=== PATIENT | male | born 1940 | race Caucasian/White ===

== ENCOUNTER → 2024-01-08 16:40 | Outpatient (REF) | payer BC, MEDICARE, SELFPAY ==
[2024-01-08 17:40] LABS: Blood Urea Nitrogen 35 mg/dl (9-20); Calcium 9.5 mg/dl (8.4-10.2); Carbon Dioxide 24 mmol/L (22-30); Chloride 101 mmol/L (98-107); Glucose 90 mg/dl (70-99); Potassium 5.3 mmol/L (3.5-5.1); Sodium 135 mmol/L (135-145); eGFR 39.02
== END ==
LOC: REG 16:40
PROVIDERS: ATTENDING PHYSICIAN Internal Medicine
DX: E87.5 Hyperkalemia (principal)
CPT/HCPCS: 36415; 80048

== ENCOUNTER 2024-03-22 09:14 | Emergency (ER) | payer BC, MEDICARE, SELFPAY ==
[2024-03-22 09:23] VITALS: BP 169/75
[2024-03-22 09:40] VITALS: BMI 28.0
--- NOTE | 2024-03-22 09:59 | ED.GENMED ---
History of Present Illness
<Carolina Knox PA-C - Last Filed: 03/22/24 10:53>
General
Chief Complaint: Musculo-Skeletal Complaint
Source: patient
Time Seen by Provider: 03/22/24 09:48
History of Present Illness
History of Present Illness:
83yoM with a history of coronary artery disease s/p PCI, hypertension, and hyperlipidemia presenting for evaluation of right-sided neck pain. Symptoms have been ongoing for about a week. He has been going to orthopedics for right hip pain and has
been injections. He states he started to have low back pain which was followed by the right sided neck pain. He denies any trauma or inciting incident. Pain is worse with movement. He has been taking Tylenol without much improvement. He denies
any weakness or paresthesias of the extremities. No chest pain or shortness of breath. No fevers.
Past History
<Carolina Knox PA-C - Last Filed: 03/22/24 10:53>
Past History
ED Past Medical History: Cancer, HTN, Hypercholesterolemia, Other (CML, osteoarthritis) and Other
ED Past Surgical History: Appendectomy, Tonsilectomy and Other
Social History
Tobacco: Non-smoker
Alcohol: None
Drug: None
Personal:
Living: with family
Employment: Employed (Self-employed)
Family History
Family History: Other (Father had a stroke); Negative CAD
Phy Exam
<Carolina Knox PA-C - Last Filed: 03/22/24 10:53>
General Physical Exam
General Presentation: well appearing and no apparent distress
General age: appears stated age
General Skin: warm and dry
General Habitus: normal
General Mental: alert
ENT Exam
ENT Exam: normocephalic and other (+Reproducible tenderness to the cervical portion of the R trapezius muscle. No skin changes. No nuchal rigidity. )
Cardiovascular Exam
Cardiovascular Exam: normal peripheral pulses (2+ R radial pulse)
Pulmonary Exam
Pulmonary Exam: no respiratory distress
[place] Coma Scale
Eye Opening: Spontaneous
Verbal Response: Oriented
Motor Response: Obeys Commands
GCS Total Score: 15
Musculoskeletal Exam
Musculoskeletal Exam: full ROM (ROM of R shoulder normal. No tenderness to R shoulder joint) and neck pain
Skin Exam
Skin Exam: normal color and warm/dry
Psychiatric Exam
Psychiatric Exam: normal mood/affect
<Tera Silva DO - Last Filed: 03/22/24 17:38>
[place] Coma Scale
GCS Total Score: 15
Course
<Carolina Knox PA-C - Last Filed: 03/22/24 10:53>
Orders/Labs/Results
Orders:
Orders
03/22/24 09:26
Shoulder, Right 2 Views [CR Shoulder - Right Min 2 View] Urgent
Comment:
Reason For Exam: pain
03/22/24 10:00
Ketorolac [Toradol] 30 mg IM NOW STA
03/22/24 10:15
Lidocaine [Lidocaine 4% Patch] 1 patch TOPICAL DAILY
Apply Lidocaine patch(s) to:: R neck
Vital Signs
Initial and Last Documented VS:
Initial Vital Signs
Temp Pulse Resp BP Pulse Ox
98.3 F 73 16 169/75 98
03/22/24 09:23 03/22/24 09:23 03/22/24 09:23 03/22/24 09:23 03/22/24 09:23
Last Documented Vital Signs
Temp Pulse Resp BP Pulse Ox
98.3 F 73 16 169/75 98
03/22/24 09:23 03/22/24 09:23 03/22/24 09:23 03/22/24 09:23 03/22/24 09:23
<Tera Silva DO - Last Filed: 03/22/24 17:38>
Orders/Labs/Results
Orders:
Orders
03/22/24 09:26
Shoulder, Right 2 Views [CR Shoulder - Right Min 2 View] Urgent
Comment:
Reason For Exam: pain
03/22/24 10:00
Ketorolac [Toradol] 30 mg IM NOW STA
03/22/24 10:15
Lidocaine [Lidocaine 4% Patch] 1 patch TOPICAL DAILY
Apply Lidocaine patch(s) to:: R neck
Vital Signs
Initial and Last Documented VS:
Initial Vital Signs
Temp Pulse Resp BP Pulse Ox
98.3 F 73 16 169/75 98
03/22/24 09:23 03/22/24 09:23 03/22/24 09:23 03/22/24 09:23 03/22/24 09:23
Last Documented Vital Signs
Temp Pulse Resp BP Pulse Ox
98.3 F 73 16 169/75 98
03/22/24 09:23 03/22/24 09:23 03/22/24 09:23 03/22/24 09:23 03/22/24 09:23
<Carolina Knox PA-C - Last Filed: 03/22/24 10:53>
MDM/Problems Addressed
Differential Diagnosis Includes:
83yoM here with R sided neck pain x 1 week. No trauma. No CP/SOB. Pain is worse with movement and is reproducible on exam. Vital signs stable. Exam is otherwise reassuring. Presentation consistent with a trapezius muscle strain/spasm. R shoulder
x-rays obtained in triage appear normal. IM Toradol and lidocaine patch ordered in ED. Supportive care discussed including heat, massage, lidocaine patches, and PRN Tylenol. Prescription provided for Robaxin. Advised f/u with PCP and pain
management. He was discharged in stable condition.
<Carolina Knox PA-C - Last Filed: 03/22/24 10:53>
*Critical Care Note
Total Time (30-74mins, 75-104mins- exclusive of procedures): Not Applicable
ED Attending Note
<Carolina Knox PA-C - Last Filed: 03/22/24 10:53>
-
Portions of this chart may have been created with voice recognition software.� Occasional wrong word or��sound alike� substitutions may have occurred due to the inherent limitations of voice recognition software.
<Tera Silva DO - Last Filed: 03/22/24 17:38>
ED Attending Note
Patient seen and examined by attending physician: Yes
I performed the substantive portion of visit, reviewed & personally made and approve the management plan that is documented in note by myself or DEEJAY.: Yes
ED Attending Note:
Patient is a 3-year-old [id number] male who presents to the emergency department with right posterior shoulder pain. Patient denies any recent injuries. Patient denies fever or chills. Patient is tender in the posterior shoulder along
the trapezius. X-rays were negative. Patient treated for musculoskeletal pain. No signs of any vascular type of involvement or injury.
Discharge Plan
Departure
Patient Disposition: Home (Routine Discharge)
Date of Disposition: 03/22/24
Time of Disposition: 10:01
Patient with high blood pressure during this ER visit?: Yes
Discharge Problem:
Strain of cervical portion of right trapezius muscle
Instructions: Neck Pain Exercises, Neck Pain ED
Prescriptions:
New
methocarbamol 500 mg tablet
500 mg PO Q8H PRN (Reason: muscle spasms) Qty: 15 0RF
No Action
ezetimibe 10 mg Tablet
10 mg PO DAILY
Patient Comments:
PT TO EMAIL AND BRING IN MEDICATION LIST. THIS LIST OBTAINED FROM DR TRIPP OFFICE NOTE FROM 02/12/23.
ascorbic acid (vitamin C) [Vitamin C] 1,000 mg Tablet
1,000 mg PO DAILY
Patient Comments:
PT TO EMAIL AND BRING IN MEDICATION LIST. THIS LIST OBTAINED FROM DR TRIPP OFFICE NOTE FROM 02/12/23.
valsartan 160 mg tablet
160 mg PO QPM
Patient Comments:
PT TO EMAIL AND BRING IN MEDICATION LIST. THIS LIST OBTAINED FROM DR TRIPP OFFICE NOTE FROM 02/12/23.
aspirin 81 mg Tablet,Chewable
81 mg PO DAILY 30 Days Qty: 30 0RF
Patient Comments:
PT TO EMAIL AND BRING IN MEDICATION LIST. THIS LIST OBTAINED FROM DR TRIPP OFFICE NOTE FROM 02/12/23.
cholecalciferol (vitamin D3) [Vitamin D3] 125 mcg (5,000 unit) Tablet
125 mcg PO DAILY
Patient Comments:
PT TO EMAIL AND BRING IN MEDICATION LIST. THIS LIST OBTAINED FROM DR TRIPP OFFICE NOTE FROM 02/12/23.
coenzyme Q10 [CoQ-10] 100 mg Capsule
200 mg PO DAILY
omeprazole 20 mg Capsule,Delayed Release(Dr/Ec)
20 mg PO QPM
clopidogrel 75 mg tablet
75 mg PO DAILY Qty: 90 3RF
sulfamethoxazole-trimethoprim 800-160 mg tablet
1 tab PO BID
Slow Release Iron
1 tab PO DAILY
Ultra Spectrum
1 tab PO DAILY
atorvastatin 80 mg tablet
80 mg PO QPM
Patient Comments:
PT TO EMAIL AND BRING IN MEDICATION LIST. THIS LIST OBTAINED FROM DR TRIPP OFFICE NOTE FROM 02/12/23.
nitroglycerin [Nitrostat] 0.4 mg tablet, sublingual
0.4 mg sublingual [id number] PRN (Reason: chest pain)
Rx Instructions:
use one tab under tongue every 5-15 min up to 3 times
polyethylene glycol 3350 [HealthyLax] 17 gram Powder In Packet
17 g PO DAILYPRN PRN (Reason: constipation) Qty: 0 0RF
ciprofloxacin HCl 500 mg tablet
500 mg PO BID Qty: 10 0RF
Rx Instructions:
start tonight
Referrals:
Cristhian Newell MD [Active] -
Activity Restrictions/Additional Instructions:
Massage and apply heat to affected area. Use lidocaine patches daily (12 hours on, 12 hours off). Take Tylenol 650mg every 6 hours as needed for pain. Take Robaxin (muscle relaxer) as needed for spasms.
Please follow-up with your family doctor and pain management.
Return to the ER with any new or worsening symptoms.
Interventions
Interventions:
*Risk Screen - Suicide Last Done: 03/22/24 09:23
*General Assessment Last Done: 03/22/24 09:23
*Neglect/Abuse Screening Last Done: 03/22/24 09:23
ED- Fall Risk Assessment Last Done: 03/22/24 09:40
*ED COVID-19 Vaccine History Last Done: 03/22/24 09:40
*Nursing Disposition Last Done: 03/22/24 10:15
ED-Musculoskeletal Assessment Last Done: 03/22/24 09:40
Discharge Date and Time
Discharge Date/Time: 03/22/24 10:41
Print Language: QATARI
[2024-03-22] MEDS: TORADOL 30 MG IM (10:05)
[2024-03-22] MEDS: LIDOCAINE 4% PATCH 1 PATCH TOPICAL (10:05)
== END 2024-03-22 10:41 | disposition home or self-care (01) ==
LOC: EMR 09:14
PROVIDERS: EMERGENCY PHYSICIAN Emergency Medicine; FAMILY PHYSICIAN Internal Medicine
DX: S16.1XXA Strain of muscle, fascia and tendon at neck level, initial encounter (principal); S29.012A Strain of muscle and tendon of back wall of thorax, initial encounter; X58.XXXA Exposure to other specified factors, initial encounter; E78.00 Pure hypercholesterolemia, unspecified; I10 Essential (primary) hypertension; I25.10 Atherosclerotic heart disease of native coronary artery without angina pectoris; Z82.3 Family history of stroke; Z90.49 Acquired absence of other specified parts of digestive tract; Z95.5 Presence of coronary angioplasty implant and graft
CPT/HCPCS: 99283; 96372; 73030

== ENCOUNTER → 2024-05-12 12:03 | Outpatient (REF) | payer BC, MEDICARE, SELFPAY | LOC: RAD 12:03 | PROVIDERS: ATTENDING PHYSICIAN Internal Medicine | DX: R60.0 Localized edema (principal) | CPT/HCPCS: 93970 ==

== ENCOUNTER → 2024-07-28 09:09 | Outpatient (REF) | payer BC, MEDICARE, SELFPAY | LOC: RAD 09:09 | PROVIDERS: ATTENDING PHYSICIAN Internal Medicine | DX: N18.9 Chronic kidney disease, unspecified (principal) | CPT/HCPCS: 76770 ==

== ENCOUNTER → 2024-08-07 09:54 | Outpatient (REF) | payer BC, MEDICARE, SELFPAY | LOC: HWRCS 09:54 | PROVIDERS: ATTENDING PHYSICIAN Internal Medicine Cardiovascular Disease; FAMILY PHYSICIAN Internal Medicine | DX: R60.0 Localized edema (principal); R06.09 Other forms of dyspnea | CPT/HCPCS: 93306 ==

== ENCOUNTER → 2024-09-11 12:16 | Outpatient (REF) | payer BC, MEDICARE, SELFPAY | LOC: HWRCS 12:16 | PROVIDERS: ATTENDING PHYSICIAN Internal Medicine Cardiovascular Disease; FAMILY PHYSICIAN Internal Medicine | DX: I25.10 Atherosclerotic heart disease of native coronary artery without angina pectoris (principal) | CPT/HCPCS: 78452; 93017; A9500; J2785 ==

== ENCOUNTER → 2024-10-16 08:21 | Outpatient (REF) | payer BC, MEDICARE, SELFPAY | LOC: HWRCS 08:21 | PROVIDERS: ATTENDING PHYSICIAN Internal Medicine Cardiovascular Disease; FAMILY PHYSICIAN Internal Medicine | DX: I25.10 Atherosclerotic heart disease of native coronary artery without angina pectoris (principal) | CPT/HCPCS: 78452; 93017; A9500 ==

== ENCOUNTER → 2025-02-06 08:34 | Outpatient (REF) | payer BC, MEDICARE, SELFPAY ==
[2025-02-06 09:58] LABS: ALT (SGPT) 20 U/L (0-50); AST (SGOT) 24 U/L (17-59); Albumin 4.1 g/dl (3.5-5.0); Alkaline Phosphatase 55 U/L (38-126); Blood Urea Nitrogen 20 mg/dl (9-20); Calcium 8.4 mg/dl (8.4-10.2); Carbon Dioxide 26 mmol/L (22-30); Chloride 98 mmol/L (98-107); Glucose 162 mg/dl (70-99); Potassium 5.0 mmol/L (3.5-5.1); Sodium 130 mmol/L (135-145); Total Protein 5.9 g/dl (6.3-8.2); eGFR 45.06
[2025-02-06 10:15] LABS: Hematocrit 31.0 % (39.0-52.0); Hemoglobin 9.9 g/dL (13.0-18.0); Mean Corp Hgb Conc. 31.9 g/dL (33.0-37.0); Mean Corpuscular Volume 92.5 fL (80.0-94.0); Red Cell Dist. Width 16.7 % (11.5-14.5)
[2025-02-06 11:47] LABS: Nucleated Red Blood Cells % 0 % (-); Platelet Count 70 10^3/uL (130-400)
== END ==
LOC: REG 08:34
PROVIDERS: FAMILY PHYSICIAN Internal Medicine
DX: C91.10 Chronic lymphocytic leukemia of B-cell type not having achieved remission (principal)
CPT/HCPCS: 36415; 80053; 85025

== ENCOUNTER 2025-02-10 07:58 | Inpatient (IN) | payer BC, MEDICARE, SELFPAY ==
--- NOTE | 2025-01-22 12:54 | CM ---
Addendum entered by Beba Pollard RN 01/27/25 14:30:
Oliver left message for patient to discuss discharge plan.
Original Note:
CM reviewed medical records. CM left message for patient's daughter to discuss discharge planning.
[2025-01-29 12:04] LABS: Hematocrit 31.5 % (39.0-52.0); Hemoglobin 9.8 g/dL (13.0-18.0); Mean Corp Hgb Conc. 31.1 g/dL (33.0-37.0); Mean Corpuscular Volume 94.9 fL (80.0-94.0); Platelet Count 63 10^3/uL (130-400); Red Cell Dist. Width 17.3 % (11.5-14.5)
[2025-01-29 12:59] LABS: ALT (SGPT) 20 U/L (0-50); AST (SGOT) 23 U/L (17-59); Albumin 3.9 g/dl (3.5-5.0); Alkaline Phosphatase 46 U/L (38-126); Blood Urea Nitrogen 21 mg/dl (9-20); Calcium 8.6 mg/dl (8.4-10.2); Carbon Dioxide 28 mmol/L (22-30); Chloride 102 mmol/L (98-107); Glucose 103 mg/dl (70-99); Potassium 4.3 mmol/L (3.5-5.1); Sodium 136 mmol/L (135-145); Total Protein 5.7 g/dl (6.3-8.2); eGFR 45.06
[2025-01-29 13:20] LABS: Glycohemoglobin (HgbA1c) 5.7 % (4.0-5.6)
[2025-01-29 14:13] VITALS: BMI 29.8
--- NOTE | 2025-01-29 16:09 | HPS.HSE ---
Addendum entered and electronically signed by Candie Pelletier PA-C 02/09/25 09:15:
Addendum: The patient has been cleared by his peer financial counselor, Dr. Rj Whitfield, and reportedly by his primary care physician, Dr. Eryn Ward. A repeat CBC on 02/06/2025 demonstrated a stable hemoglobin of 9.9 and an improved platelet count of
70,000. Per Dr. Whitfield, his worsening anemia/thrombocytopenia are likely the result of recovering from a recent UTI. He has undergone antibiotic treatment with Bactrim and his symptoms have reportedly improved. Per Dr. Whitfield, a platelet count of
70,000 or greater should be adequate for orthopedic surgery/hemostasis and that the benefit of the surgery outweighs the risk of bleeding at that platelet level. From our perspective, we will start the patient on steroids post-operatively to help
promote platelet production. He will also take Aspirin 81 mg p.o. twice a day post-procedure for DVT prophylaxis to help minimize bleeding. His anemia and thrombocytopenia will be reassessed with a CBC on post-operative day 1 to determine stability.
Of note, it was also previously mentioned that the patient has a chronic, non-occlusive thrombus of right greater saphenous vein. This is an error. This actually was noted to resolve on his bilateral venous extremity study in May 2024 (see
[facility] for detailed report).
Original Note:
Family Physician
-
Family Physician: Eryn Ward
Chief Complaint
-
Advanced primary osteoarthritis of the right hip.
History of Present Illness
The patient is a 84-year-old male presenting today for advanced primary osteoarthritis of the right hip. The patient reports significant right hip pain and instability secondary to this diagnosis. He notes that his current right hip
symptoms are greatly interfering with his activities of daily living and are overall impacting his quality of life. He has tried and failed multiple conservative treatment measures in the past for his right hip symptoms. These conservative treatment
measures include self-directed therapeutic exercises, activity modification, intra-articular injections, medical management with Tylenol, and the application of ice and/or heat. Recent MRI findings of the right hip demonstrated [id number]
osteoarthritis with a large effusion. He was determined to be in need of a right total hip arthroplasty. He denies any current complaints today such as chest pain, shortness of breath, palpitations, nausea, vomiting, diarrhea, lightheadedness,
dizziness, cough, sore throat, or fever.
Medical History
Past Medical History
Past Medical History: Reports Other
Additional Past Medical History:
1. Osteoarthritis.
2. Hypertension.
3. Hyperlipidemia.
4. Coronary artery disease, status post PCI with drug-eluting stent to LAD 03/2023.
5. Mild carotid atherosclerosis.
6. 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
7. Venous varicosities with insufficiency.
8. Right pulmonary nodule.
9. Obstructive sleep apnea, non-compliant with device.
10. Chronic kidney disease stage 3.
11. GERD.
12. Hiatal hernia.
13. Colon polyps.
14. Diverticulosis.
15. Umbilical hernia, inoperable per patient.
16. Splenomegaly.
17. Bilateral renal cysts.
18. Chronic constipation.
19. Mild cognitive deficits.
20. 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
21. Raynaud's disease.
22. Ankylosing spondylitis.
23. Chronic lymphocytic leukemia with thrombocytopenia, diagnosed 01/2019.
24. Anemia of chronic disease.
25. Basal cell carcinoma, face, status post MOHS.
26. Iron deficiency anemia, on oral supplement.
27. BPH with LUTS, status post TURP.
28. Bladder diverticulum.
29. Neurogenic bladder with self catheterization.
30. History of recurrent UTIs due to the above.
31. History of recurrent iritis.
32. HLA B27 positive.
33. Remote shingles.
34. Prediabetes, A1c 5.7.
35. Hearing impairment bilaterally.
Past Surgical History: Reports Other
Additional Past Surgical History:
1. PCI with drug-eluting stent to LAD.
2. TURP.
3. Appendectomy.
4. Tonsillectomy.
5. MOHS.
6. Bone marrow biopsy.
7. Bilateral cataract extraction.
8. Colonoscopy x2.
9. Endoscopy.
Social History
Tobacco: Non-smoker
Alcohol: None
Personal:
Living: Other (He lives with his in a 3 story home with an elevator. He plans on starting outpatient PT through [facility] on 02/12/2025. )
Family History
Family History: Not pertinent
Allergies / Home Medications
Allergy/Medication List:
HOME MEDICATIONS:
1. Ascorbic acid 1000 mg p.o. daily.
2. Aspirin 81 mg p.o. daily.
3. Atorvastatin 80 mg p.o. every evening.
4. Cholecalciferol 125 mcg p.o. daily.
5. CoQ10 100 mg p.o. daily.
6. Zetia 10 mg p.o. daily.
7. Metamucil 1 packet p.o. daily.
8. Omeprazole 20 mg p.o. every evening.
9. Ultra spectrum one tablet p.o. daily.
10. Valsartan 80 mg p.o. every evening.
11. Bone Flex 1 dose p.o. daily.
12. Ferrous sulfate 300 mg p.o. daily.
13. Homocysteine 1 tablet p.o. daily.
14. Hydralazine 25 mg p.o. twice a day.
15. Nitrostat 0.4 mg sublingual every 5 minutes as needed (max of 3 doses).
ALLERGIES: No known allergies.
Review of Systems
-
A 12 point ROS was completed and negative except as noted: Yes
Physical Exam
Vital Signs
Blood pressure 125/60. Heart rate 62. Respirations 18. Pulse ox 98% on room air.
Height 6 feet. Weight 99.6 kg. BMI 29.8.
Physical Exam
General: Well Developed, Well Nourished and No Apparent Distress
HEENT: NormoCephalic, Moist mucous membranes, Atraumatic and PERRLA
Respiratory: Clear
Cardiac: Regular Rhythm
GI: Soft, Non Tender, Non Distended and Other (Abdominal hernia noted. )
Musculoskeletal: Other (Left hip: 10 internal, 10 extrenal rotation. No pain upon passive motion. Right hip: 10 internal, 5 external, with significant pain upon passive motion. )
Skin: Warm and Dry
Neuro: AO x 3 and Other (Mild cognitive deficits noted. )
Laboratory Results
-
01/29/25 11:15
01/29/25 11:15
Laboratory Results
Total Bilirubin 0.4 mg/dl (0.2-1.3) 01/29/25 11:15
AST 23 U/L (17-59) 01/29/25 11:15
ALT 20 U/L (0-50) 01/29/25 11:15
Alkaline Phosphatase 46 U/L (38-126) 01/29/25 11:15
Hemoglobin A1c 5.7.
Type and screen A positive.
MRSA screen negative.
EKG provided by Cardiology.
Lexiscan stress test 09/11/2024: Inconclusive ECG for ischemia given pharmacologic study. Probably normal study with soft tissue attenuation of the inferior wall. The exercise tolerance is well below average for given age and gender. Stress Risk is
moderate risk study (1 - 3% OK or /year) due to pharmacologic agent used and poor exercise tolerance. (Landa Treadmill Score = +2.5). Systolic function is normal. The ejection fraction is 67%. Compared with the Lexiscan nuclear study performed
on 02/12/2023, the prior defects are not appreciated on today's study.
Echocardiogram 08/07/2024: Normal biventricular size and systolic function without regional wall motion abnormality. Diastolic function indeterminate. Elevated right ventricular systolic pressure. Compared to previous echo of 12/28/22, there is now
elevated right sided pressure.
Impression/Plan
-
CLEARANCES:
1. Primary medical, Dr. Eryn Ward, pending.
Primary medical phone number: [phone].
2. Cardiology, Dr. Mason Anderson, cleared.
3. Hematology/Oncology, Dr. Rj Whitfield, pending.
4. Dental waived.
IMPRESSION/PLAN:
1. Advanced primary osteoarthritis of the right hip in need of a right total hip arthroplasty by Dr. Herb Quintana on 02/10/2025. The benefits and risks of the procedure have been explained to the patient. The patient understands these risks and
wishes to proceed.
2. Deep vein thrombosis prophylaxis: Aspirin and bilateral venous compression devices.
3. Complex cardiovascular history: Given his complex cardiovascular history, he will be monitored on telemetry post-surgery.
4. Mild cognitive deficits: Opioids will be minimized as able.
5. Anemia of chronic disease and chronic lymphocytic leukemia with thrombocytopenia: A CBC will be ordered on post-operative day 1 to determine stability. Steroids will be ordered to assist in platelet formation.
6. Elevated infection risk: The patient is considered to be an elevated risk of infection due to his history of recurrent UTIs with self-catheterization. Because of this, he will be prescribed Cefadroxil for one week post-surgery. Probiotic use will
be highly encouraged while on this antibiotic.
Patient's phone number: [phone].
Patient's contact (Alycia Pena - Spouse): [phone].
The patient will be postponed due to his most recent hemoglobin and platelet count and the close timing of his surgery. The patient's primary care physician, Dr. Eryn Ward, does not feel comfortable clearing the patient until these lab
values are addressed by hematology.
[2025-01-29 17:03] VITALS: BMI 29.8
--- NOTE | 2025-02-09 15:28 | VNURNOTE ---
Rec'ed update from Lori in Ortho that daughter is requesting VN post-op instead of Outpt PT. Daughter Sherrie contact # [phone]. Chart reviewed, pt will be admitted morning of surgery. Noted dght is not listed as a contact in chart. Call placed
to pt. Spoke to patient and spouse on speaker phone. Explained [facility] nurse/therapy, visits, schedule and homebound status. Patient and spouse are agreeable and understand that visits at home will be 2-3 x per week to assess and teach medical
management. Patient and spouse are aware that [facility] will contact them for start of care in 1-2 days after discharge from .
Explained that patient cannot have outpt PT and [facility] and home PT concurrently. Patient and spouse confirmed again that they are agreeable to [facility]. Advised them to cancel their Oupt PT (prev scheduled for 02/12). Patient stated he wants to
return to work in a week. Reinforced homebound status req'ed for VN services. Offered to call daughter to explain VN services. Was NOT granted permission to speak w/daughter.
[facility] updated via T.T.
[facility] referral completed in [facility].
[2025-02-10] VITALS (15 sets, daily range): BP systolic 120–144; BP diastolic 46–70; PULSE 78–80; O2SAT 94–95; BMI 29.8
[2025-02-10] MEDS: TYLENOL 650 MG PO ×4 (08:39→23:59)
[2025-02-10] MEDS: NORMOSOL-R/PLASMALYTE-A 1000 IV (08:39)
[2025-02-10] MEDS: CELEBREX 200 MG PO (08:39)
--- NOTE | 2025-02-10 09:11 | W.PN.UPDATE ---
Update Note
Progress Note Update
R hip OA s/p R MARY w/ Dr Quintana 02/10/25
DVT prophylaxis - ASA 81 mg PO BID d/t chronic thrombocytopenia, b/l venous foot pumps
HTN - + parameters - monitor BP
CAD, status post PCI with CAROLA to LAD 03/2023
Mild carotid atherosclerosis
- Continue ASA but increase to BID dosing x4 weeks for blood clot prevention
INDIA, non-compliant with device - monitor O2
- IS
- Add supplemental O2 HS
CKD stage 3 - minimize nephrotoxins
GERD and hiatal hernia - continue PPI therapy
Chronic constipation - continue daily Miralax with bowel regimen of Colace and Senna
Mild cognitive deficits - minimize opioids as able
CLL with chronic thrombocytopenia, diagnosed 01/2019 - reassess CBC in AM
- Start steroid taper to promote platelet production
- Per heme, platelet count of 70+ adequate for hemostasis
Multifactorial anemia (chronic disease, iron deficiency) - assess CBC in AM
- Continue PO iron. Consider IV iron
- Prefer not to transfuse unless hgb </= low 7s, pt asymptomatic and hemodynamically unstable
Neurogenic bladder with self catheterization
History of recurrent UTIs due to the above
- Bladder scan/straight cath prn
- Flomax prn
- Would benefit from Cefadroxil upon d/c
Chronic hyponatremia, asymptomatic - NSS running
- Assess BMP in AM
Hyperlipidemia
H/o non-occlusive thrombus of right greater saphenous vein, resolved on b/l venous extremity study 05/2024
Venous varicosities with insufficiency
Right pulmonary nodule
Colon polyps
Diverticulosis.
Umbilical hernia, inoperable per patient
Splenomegaly
Bilateral renal cysts
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
Raynaud's disease.
Ankylosing spondylitis
Basal cell carcinoma, face, status post MOHS.
BPH with LUTS, status post TURP
Bladder diverticulum
History of recurrent iritis
HLA B27 positive
Remote shingles
Prediabetes, A1c 5.7
Hearing impairment bilaterally
[2025-02-10] MEDS: DILAUDID 0.25 MG IV (13:06)
[2025-02-10] MEDS: ROXICODONE 5 MG PO (13:36)
[2025-02-10] MEDS: NSS 1000 IV (14:30)
[2025-02-10] MEDS: APRESOLINE PO ×2 (14:30→20:47)
--- NOTE | 2025-02-10 15:00 | PTCARENOTE ---
pt admitted to 2S rm 2103 via bed from PACU @1430. pt oriented to room, call cross, environment and plan of care with verbalized understanding. telemetry placed and reading SR HR 70's. admission database and assessment completed as documented.
provided supplies for pt to self cath as needed. care ongoing.
[2025-02-10] MEDS: PROTONIX 20 MG PO (17:00)
[2025-02-10] MEDS: VITAMIN D3 (cholecalciferol) 125 MCG PO (17:00)
[2025-02-10] MEDS: ZETIA 10 MG PO (17:00)
[2025-02-10] MEDS: METAMUCIL, KONSYL 1 PACKET PO (17:02)
[2025-02-10] MEDS: FEOSOL 325 MG PO (17:02)
[2025-02-10] MEDS: ROXICODONE 10 MG PO (17:14)
[2025-02-10] MEDS: DELTASONE 40 MG PO (17:28)
[2025-02-10] MEDS: ANCEF 5 IV (17:35)
[2025-02-10] MEDS: DIOVAN PO (17:35)
[2025-02-10] MEDS: LIPITOR 80 MG PO (17:36)
[2025-02-10] MEDS: COLACE 100 MG PO (20:53)
[2025-02-10] MEDS: SENOKOT 17.2 MG PO (20:53)
[2025-02-10] MEDS: BACTROBAN 2% OINTMENT 1 APPLIC NASAL (20:53)
[2025-02-10] MEDS: LOW STRENGTH ASPIRIN 81 MG PO (20:53)
[2025-02-10] MEDS: NEURONTIN 200 MG PO (20:59)
[2025-02-10] MEDS: MELATONIN 5 MG PO (23:58)
[2025-02-11] VITALS (9 sets, daily range): BP systolic 105–152; BP diastolic 48–74; PULSE 64–75; O2SAT 94–99
[2025-02-11] MEDS: ROXICODONE 5 MG PO (00:28)
[2025-02-11] MEDS: ANCEF 5 IV (03:07)
[2025-02-11] MEDS: TYLENOL PO ×2 (03:12→08:33)
[2025-02-11] MEDS: TYLENOL 650 MG PO ×4 (05:48→20:58)
[2025-02-11 06:48] LABS: Hematocrit 24.4 % (39.0-52.0); Hemoglobin 7.7 g/dL (13.0-18.0); Mean Corp Hgb Conc. 31.6 g/dL (33.0-37.0); Mean Corpuscular Volume 91.7 fL (80.0-94.0); Platelet Count 73 10^3/uL (130-400); Red Cell Dist. Width 16.5 % (11.5-14.5)
[2025-02-11 07:02] LABS: Blood Urea Nitrogen 24 mg/dl (9-20); Calcium 7.9 mg/dl (8.4-10.2); Carbon Dioxide 24 mmol/L (22-30); Chloride 98 mmol/L (98-107); Estimated Creatinine Clearance 42 ml/min; Glucose 186 mg/dl (70-99); Potassium 5.1 mmol/L (3.5-5.1); Sodium 129 mmol/L (135-145); eGFR 48.95
--- NOTE | 2025-02-11 08:08 | CM ---
CM met with patient in room. IMM given. CM confirmed patient's preference for [facility].
PLAN: Home with [facility].
[2025-02-11] MEDS: APRESOLINE PO ×2 (08:31→20:41)
[2025-02-11] MEDS: BACTROBAN 2% OINTMENT 1 APPLIC NASAL ×2 (08:31→20:58)
[2025-02-11] MEDS: COLACE 100 MG PO ×2 (08:31→20:58)
[2025-02-11] MEDS: LOW STRENGTH ASPIRIN 81 MG PO ×2 (08:32→20:58)
[2025-02-11] MEDS: VITAMIN D3 (cholecalciferol) 125 MCG PO (08:32)
[2025-02-11] MEDS: ZETIA 10 MG PO (08:32)
[2025-02-11] MEDS: METAMUCIL, KONSYL 1 PACKET PO (08:32)
[2025-02-11] MEDS: FEOSOL 325 MG PO (08:32)
[2025-02-11] MEDS: SENOKOT 17.2 MG PO ×2 (08:32→20:58)
[2025-02-11] MEDS: PROTONIX 20 MG PO (08:32)
[2025-02-11] MEDS: ROXICODONE 10 MG PO ×2 (08:50→16:02)
--- NOTE | 2025-02-11 09:12 | CON.ONC ---
Consultation
-
Date Consultation Requested: 02/11/25
Date Consultation Performed: 02/11/25
Requesting Provider: Candie Pelletier PA-C
Performing Provider: Dr. Satya Mera
Reason for Consultation: CLL, anemia, WBC 45.6, Hg 7.7
Impression
Impression
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 He has had a bump in his white blood cell count
from baseline 24-> 45.6. Postoperative hemoglobin is 7.7. He lost 400 mL during operation and has received fluids making his drop in hemoglobin likely dilutional combination of blood loss from surgery. Repeat CBC is pending.
Plan
Plan
CLL vs MZL
Leukocytosis - likely reactive
Multifactorial anemia in setting of CKD, CLL, post-op blood loss, dilutional
--Sees Dr. Whitfield at [facility] for management
--Increase in leukocytes likely reactive however given history of UTIs and self-caths - check UA
--Repeat CBC pending - monitor hg - cross, type and screen, transfuse for <8
--Check quantitative IgG
--Incentive spirometry as pneumonia is one of the most common post-op infectious complications
--Ptl stable - monitor
DVT asa 81 BID and foot pumps
Patient History
History of Present Illness
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
02/10 for elective total right hip arthroplasty with Dr. Quintana. He has a history of osteoarthritis with ongoing right hip pain and opted for elective right hip replacement. Preoperative clearance was required by his chemical process engineer oncologist
Rj Whitfield at [facility] given his hx of CLL. He is not on any treatment for his CLL and just routinely sees Dr. Whitfield for follow up. In his preop clearance note with Dr. Whitfield, hemoglobin 9.9, platelets 70,000, WBC 24 which was noted to be
sufficient for surgery.
Post-operative labs revealed a bumb in his WBC to 45.6, hg 7.7, plt 73. From prior labs with differential on 02/06 neutrophils were 6.9 and protein gap was 1.8. He is afebrile and vital signs stable. He denies any cough, sore throat, runny nose,
abdominal pain, nausea, vomiting, diarrhea, burning with urination, blood in the urine, blood in stool. Hematology oncology was consulted for increase in WBC count given history of CLL.
Past-Medical/Surgical History
PMHx:
1. Osteoarthritis.
2. Hypertension.
3. Hyperlipidemia.
4. Coronary artery disease, status post PCI with drug-eluting stent to LAD 03/2023.
5. Mild carotid atherosclerosis.
6. Non-occlusive thrombus of right greater saphenous vein - resolved May 2024
7. Venous varicosities with insufficiency.
8. Right pulmonary nodule.
9. Obstructive sleep apnea, non-compliant with device.
10. Chronic kidney disease stage 3.
11. GERD.
12. Hiatal hernia.
13. Colon polyps.
14. Diverticulosis.
15. Umbilical hernia, inoperable per patient.
16. Splenomegaly.
17. Bilateral renal cysts.
18. Chronic constipation.
19. Mild cognitive deficits.
20. 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
21. Raynaud's disease.
22. Ankylosing spondylitis.
23. Chronic lymphocytic leukemia with thrombocytopenia, diagnosed 01/2019.
24. Anemia of chronic disease.
25. Basal cell carcinoma, face, status post MOHS.
26. Iron deficiency anemia, on oral supplement.
27. BPH with LUTS, status post TURP.
28. Bladder diverticulum.
29. Neurogenic bladder with self catheterization.
30. History of recurrent UTIs due to the above.
31. History of recurrent iritis.
32. HLA B27 positive.
33. Remote shingles.
34. Prediabetes, A1c 5.7.
35. Hearing impairment bilaterally.
Past surgical history:
1. PCI with drug-eluting stent to LAD.
2. TURP.
3. Appendectomy.
4. Tonsillectomy.
5. MOHS.
6. Bone marrow biopsy.
7. Bilateral cataract extraction.
8. Colonoscopy x2.
9. Endoscopy.
10. Right total hip arthroplasty 02/2025
Patient Medication
�Medication �Instructions �Recorded �Confirmed �Last Taken �Type
ascorbic acid (vitamin C) 1,000 mg 1,000 mg PO DAILY Supplement 12/27/22 02/10/25 1 Week Ago History
tablet (Vitamin C) ~02/03/25
ezetimibe 10 mg tablet 10 mg PO DAILY High Cholesterol 12/27/22 02/10/25 02/09/25 07:30 History
valsartan 160 mg tablet 80 mg PO QPM Blood Pressure 12/27/22 02/10/25 02/09/25 07:30 History
aspirin 81 mg chewable tablet 81 mg PO DAILY 30 days #30 tabs 12/29/22 02/10/25 02/09/25 07:30 Rx
cholecalciferol (vitamin D3) 125 125 mcg PO DAILY Supplement 03/01/23 02/10/25 1 Week Ago History
mcg (5,000 unit) tablet (Vitamin ~02/03/25
D3)
Ultra Spectrum 1 tab PO DAILY Supplement 05/17/23 02/10/25 1 Week Ago History
~02/03/25
atorvastatin 80 mg tablet 80 mg PO QPM High Cholesterol 05/17/23 02/10/25 02/09/25 19:00 History
nitroglycerin 0.4 mg sublingual 0.4 mg sublingual [id number] PRN 05/17/23 02/10/25 Unknown History
tablet (Nitrostat) chest pain
sulfamethoxazole 800 1 tab PO BID Infection 05/17/23 02/10/25 4 Days Ago History
mg-trimethoprim 160 mg tablet ~02/06/25
Held on 05/19/23.
Instructions: discuss
restarting with your urologist
psyllium 1 packet PO DAILY Constipation 01/28/25 02/10/25 02/09/25 07:30 History
Bone Flex 1 dose PO DAILY Supplement 01/29/25 02/10/25 1 Week Ago History
~02/03/25
ferrous sulfate 300 mg (60 mg 300 mg PO DAILY Supplement 01/29/25 02/10/25 02/09/25 07:30 History
iron) tablet
folic acid-vit B6-vit B12 0.8 1 tab PO DAILY Supplement 01/29/25 02/10/25 1 Week Ago History
mg-50 mg-100 mcg tablet ~02/03/25
(Homocysteine Formula)
hydralazine 25 mg tablet 25 mg PO BID Blood Pressure 01/29/25 02/10/25 02/09/25 19:00 History
mupirocin 2 % topical ointment 1 applic intranasal BID #1 tube 01/29/25 Unknown Rx
omeprazole 20 mg tablet,delayed 20 mg PO DAILY Gastrointestinal 01/29/25 02/10/25 02/09/25 07:30 History
release Issue
Active Medications
Generic Name Dose Route Start Last Admin
Trade Name Freq PRN Reason Stop Dose Admin
Acetaminophen 650 mg 02/10/25 16:00 02/11/25 08:33
Acetaminophen 325 Mg Tablet PO 03/10/25 15:59 Not Given
Q4HWA CHEYENNE
Al Hydrox/Mg Hydrox/Simethicone 30 ml 02/10/25 11:11
Mag/Al/Simethicone Suspension 30 Ml Cup PO 03/10/25 11:10
Q4HPRN PRN
INDIGESTION
Aspirin 81 mg 02/10/25 20:00 02/11/25 08:32
Aspirin 81 Mg Chewable Tablet PO 03/10/25 19:59 81 mg
BID CHEYENNE Administration
Atorvastatin Calcium 80 mg 02/10/25 18:00 02/10/25 17:36
Atorvastatin (Lipitor) 80 Mg Tablet PO 03/10/25 17:59 80 mg
QPM CHEYENNE Administration
Cholecalciferol 125 mcg 02/10/25 11:11 02/11/25 08:32
Cholecalciferol (Vitamin D3) 125 Mcg Tablet (5,000 Units) PO 03/10/25 11:10 125 mcg
DAILY CHEYENNE Administration
Docusate Sodium 100 mg 02/10/25 20:00 02/11/25 08:31
Docusate Sodium 100 Mg Capsule PO 03/10/25 19:59 100 mg
BID CHEYENNE Administration
Ezetimibe 10 mg 02/10/25 11:11 02/11/25 08:32
Ezetimibe (Zetia) 10 Mg Tablet PO 03/10/25 11:10 10 mg
DAILY CHEYENNE Administration
Ferrous Sulfate 325 mg 02/10/25 15:00 02/11/25 08:32
Ferrous Sulfate 325 Mg Tablet PO 03/10/25 14:59 325 mg
DAILY CHEYENNE Administration
Gabapentin 200 mg 02/10/25 22:00 02/10/25 20:59
Gabapentin 100 Mg Capsule PO 03/10/25 21:59 200 mg
HS CHEYENNE Administration
Hydralazine HCl 25 mg 02/10/25 11:11 02/11/25 08:31
Hydralazine 25 Mg Tablet PO 03/10/25 11:10 Not Given
BID CHEYENNE
Magnesium Hydroxide 30 ml 02/10/25 11:11
Milk Of Magnesia 30 Ml Cup PO 03/10/25 11:10
DAILYPRN PRN
constipation
Mupirocin 0 applic 02/10/25 20:00 02/11/25 08:31
Mupirocin 2% (Ointment) 22 Gram Tube NASAL 02/11/25 20:01 1 applic
BID CHEYENNE Administration
Nitroglycerin 0.4 mg 02/10/25 11:11
Nitroglycerin 0.4 Mg Sl Tablet SL 03/10/25 11:10
[id number] PRN
chest pain
Ondansetron HCl 4 mg 02/10/25 11:11
Ondansetron 4 Mg/2 Ml Vial IV 03/10/25 11:10
Q6HPRN PRN
NAUSEA
Oxycodone HCl 10 mg 02/10/25 11:11 02/11/25 08:50
Oxycodone 10 Mg Regular Release Tablet PO 02/24/25 11:10 10 mg
Q4HPRN PRN Administration
severe pain
Oxycodone HCl 5 mg 02/10/25 11:11 02/11/25 00:28
Oxycodone 5 Mg Regular Release Tablet PO 02/24/25 11:10 5 mg
Q4HPRN PRN Administration
moderate pain
Oxycodone HCl 2.5 mg 02/10/25 11:11
Oxycodone 5 Mg Regular Release Tablet PO 02/24/25 11:10
Q4HPRN PRN
mild pain
Pantoprazole Sodium 20 mg 02/10/25 11:11 02/11/25 08:32
Pantoprazole 20 Mg Delayed Release Tablet PO 03/10/25 11:10 20 mg
DAILY CHYEENNE Administration
Prednisone 40 mg 02/11/25 08:00 02/11/25 08:32
Prednisone 20 Mg Tablet PO 02/16/25 07:59 Not Given
On Hold: 02/11/25 08:16 DAILY CHEYENNE
Resume: 02/12/25 08:00 Taper
Prochlorperazine Maleate 5 mg 02/10/25 11:11
Prochlorperazine 5 Mg Tablet PO 03/10/25 11:10
Q6HPRN PRN
nausea/vomiting
Psyllium Hydrophilic Mucilloid 1 packet 02/10/25 15:00 02/11/25 08:32
Psyllium Packet PO 03/10/25 14:59 1 packet
DAILY CHEYENNE Administration
Sennosides 17.2 mg 02/10/25 20:00 02/11/25 08:32
Sennosides (Senokot) 8.6 Mg Tablet PO 03/10/25 19:59 17.2 mg
BID CHEYENNE Administration
Sodium Chloride 0 flush 02/10/25 06:00
Sodium Chloride 0.9% (Flush) Syringe IV 03/10/25 05:59
PER PROTOCOL CHEYENNE
Tamsulosin HCl 0.4 mg 02/10/25 11:11
Tamsulosin 0.4 Mg Capsule PO 03/10/25 11:10
DAILYPRN PRN
bladder scan volume > 400 mL
Valsartan 80 mg 02/10/25 18:00 02/10/25 17:35
Valsartan 80 Mg Tablet PO 03/10/25 17:59 Not Given
QPM CHEYENNE
Review of Systems
-
History Source: Patient
Respiratory: Reports No Symptoms
Cardiac: Reports No Symptoms
GI: Reports No Symptoms
: Reports No Symptoms
Musculoskeletal: Reports Other (Right hip pain and burning sensation)
Neuro: Reports No Symptoms
Allergy / Immunology: Reports No Symptoms
Physical Exam
-
General: Comfortable
Cardiology: Normal Sinus Rhythm, S1 and S2
Pulmonary: Clear
GI: Soft and Normal Bowel Sounds
Musculoskeletal: No Edema
Skin: Warm and Dry
Psych: Calm
Labs
Lab Results
WBC 45.6 10^3/uL (4.8-10.8) H* 02/11/25 05:49
RBC 2.66 10^6/uL (4.70-6.10) L 02/11/25 05:49
Hgb 7.7 g/dL (13.0-18.0) L D 02/11/25 05:49
Hct 24.4 % (39.0-52.0) L 02/11/25 05:49
MCV 91.7 fL (80.0-94.0) 02/11/25 05:49
MCH 28.9 pg (27.0-31.0) 02/11/25 05:49
MCHC 31.6 g/dL (33.0-37.0) L 02/11/25 05:49
RDW 16.5 % (11.5-14.5) H 02/11/25 05:49
Plt Count 73 10^3/uL (130-400) L 02/11/25 05:49
MPV 8.4 fL (7.4-10.4) 02/11/25 05:49
Creatinine 1.4 mg/dL (0.7-1.3) H 02/11/25 05:49
Vital Signs
Vital Signs
Temp Pulse Resp BP Pulse Ox
98.2 F 70 14 114/51 95
02/11/25 07:10 02/11/25 07:10 02/11/25 07:10 02/11/25 08:31 02/11/25 07:10
--- NOTE | 2025-02-11 11:16 | W.PN.ORTHO ---
Today's Communication / Plan
-
Continue to monitor labs.
Await further recs from hospitalist service. Appreciate hematology.
Continue to work with PT and OT as able.
D/c when clinically stable.
Assessment
.
Distal Motor Intact: Yes
Dressing:
Scant areas of incisional bleeding noted on dressing.
Assessment:
R hip OA s/p R MARY w/ Dr Quintana 02/10/25
DVT prophylaxis - ASA 81 mg PO BID d/t chronic thrombocytopenia, b/l venous foot pumps
HTN - + parameters - monitor BP
CAD, status post PCI with CAROLA to LAD 03/2023
Mild carotid atherosclerosis
- Continue ASA but increase to BID dosing x4 weeks for blood clot prevention
INDIA, non-compliant with device - monitor O2
- IS
- Add supplemental O2 HS
CKD stage 3 - minimize nephrotoxins
GERD and hiatal hernia - continue PPI therapy
Chronic constipation - continue daily Miralax with bowel regimen of Colace and Senna
Mild cognitive deficits - minimize opioids as able
CLL with chronic thrombocytopenia, diagnosed 01/2019 - WBC 45.9 this AM and 50 now
- Steroid taper initially to promote platelet production held
- Consulted heme -> elevated WBC likely reactive from surgical stress, steroids. Pt overall asymptomatic. Afebrile and physical exam relatively benign. Will order UA w/ urine culture though d/t h/o recurrent UTIs.
- Continue to monitor CBC
- Per heme, platelet count of 70+ adequate for hemostasis. Platelet ct stable currently
Multifactorial anemia (chronic disease, iron deficiency) - hgb 9.8 pre-op -> mid 7s currently
- Will assess iron, vitamin B12, folate. Will supplement if indicated
- Prefer not to transfuse unless hgb </= 7, pt asymptomatic, and hemodynamically unstable. Holding currently d/t infection risk. Was discussed with surgeon.
- Trend CBC
Neurogenic bladder with self catheterization
History of recurrent UTIs due to the above
- Bladder scan/straight cath prn
- Flomax prn
- Would benefit from Cefadroxil upon d/c
Chronic hyponatremia, asymptomatic - Sodium 130 pre-op -> 129 then 127 now
- Fluid restrict
- Urine sodium, urine/serum osmolality pending
- Consider nephrology consult
Hyperlipidemia
H/o non-occlusive thrombus of right greater saphenous vein, resolved on b/l venous extremity study 05/2024
Venous varicosities with insufficiency
Right pulmonary nodule
Colon polyps
Diverticulosis.
Umbilical hernia, inoperable per patient
Splenomegaly
Bilateral renal cysts
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
Raynaud's disease.
Ankylosing spondylitis
Basal cell carcinoma, face, status post MOHS.
BPH with LUTS, status post TURP
Bladder diverticulum
History of recurrent iritis
HLA B27 positive
Remote shingles
Prediabetes, A1c 5.7
Hearing impairment bilaterally
Given the complexity of this patient and worsening labs, will consult hospitalist service as well for further medical management. PT and OT recommending acute rehab upon d/c
Plan
.
Surgery / Date: R MARY w/ Dr Quintana 02/10/25
DVT Prophylaxis: Aspirin (81 mg PO BID)
Activity:
Out of bed.
PT/OT
Discharge Plan: Rehab
Subjective
.
.:
Patient examined resting in bed.
Reports right hip pain after OT today; lidocaine, additional Gabapentin dose ordered. Tylenol given.
Does report fatigue post-op; however, denies any other acute complaints.
WBC notably elevated. Hgb in mid 7s but high 9s at baseline.
Acute on chronic hyponatremia.
Vital Signs and Labs
.
Vital Signs and Labs:
Temp Pulse Resp BP Pulse Ox
98.2 F 70 14 114/51 95
02/11/25 07:10 02/11/25 07:10 02/11/25 07:10 02/11/25 08:31 02/11/25 07:10
Non-invasive Hgb result: 11.9
Physical Exam
-
HEENT: No pallor, cyanosis, or jaundice. Throat clear.
NECK: Supple. No JVD.
RESPIRATORY: Lungs clear to auscultation.
CVS: S1, S2 normal. RRR.�
ABDOMEN: Soft, non-tender. No distension.
EXTREMITIES: Strength equal, no calf pain with palpation/dorsiflexion. Calves soft.
MINISTER OF RELIGION: AOx3. No focal deficits. 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
[2025-02-11 11:29] LABS: Nucleated Red Blood Cells % 0 % (-)
--- NOTE | 2025-02-11 11:41 | CM ---
Cm was updated by OT that they are making the recommendation for Acute Rehab. CM updated ortho PA. CM will await PT evaluation for further discharge planning efforts.
[2025-02-11 11:54] LABS: Hematocrit 22.7 % (39.0-52.0); Hemoglobin 7.5 g/dL (13.0-18.0); Mean Corp Hgb Conc. 33.0 g/dL (33.0-37.0); Mean Corpuscular Volume 91.9 fL (80.0-94.0); Platelet Count 71 10^3/uL (130-400); Red Cell Dist. Width 16.3 % (11.5-14.5)
[2025-02-11 12:15] LABS: Sodium 127 mmol/L (135-145)
--- NOTE | 2025-02-11 12:37 | CON.HOSP ---
Addendum entered and electronically signed by Deisi Velasquez PA-C 02/11/25 16:00:
Urinalysis raises concern for urinary tract infection with >100 WBC
Reviewed prior culture data
Start empiric Ceftriaxone pending final urine culture
Original Note:
Consultation
-
Date/Time Consultation Requested: Feb 11, 2025 @ 12:33PM
Date/Time Consultation Performed: Feb 11, 2025 @ 12:37PM
Requesting Provider: Candie Pelletier PA-C
Performing Provider: Deisi Velasquez PA-C / Dr. Adelina Jovel
Reason for Consultation: Medical Management
Family Physician
-
Family Physician: Eryn Ward
Chief Complaint
-
Medical Management
History of Present Illness
Patient is an 84 y/o male past medical history of CAD, CVA, HTN, Hyperlipidemia, CKD, CLL, and neurogenic blader requiring straight cath who we were asked to see for post-op medical management. Patient underwent right total hip arthroplasty
yesterday. Morning blood work revealed profound leukocytosis, worsening anemia and worsening hyponatremia. Patient seen sitting up in the chair eating lunch. He is complaining about right hip pain, and states he still feels slow/foggy following
anesthesia yesterday.
Medical History
Past Medical History
Past Medical History: Reports Other
Additional Past Medical History:
Coronary Artery Disease s/p LAD Stent in Mar 2023
Lacunar Infarct
Essential Hypertension
Hyperlipidemia
CKD Stage IIIA
Chronic Hyponatremia
CLL
Chronic Thrombocytopenia
Osteoarthritis
Neurogenic Bladder requiring Self-Cath
Recurrent UTIs
BPH
Additional Past Surgical History:
Appendectomy
Tonsillectomy
TURP x 2
Social History
Tobacco: Non-smoker
Alcohol: None
Allergies / Home Medications
Allergies reflects when Allergies were last updated in [employer].
Home Medications with original date entered in [employer]
Allergy/Medication List:
Allergies
Allergy/AdvReac Type Severity Reaction Status Date / Time
No Known Allergies Allergy Verified 02/10/25 08:10
Home Medications
ascorbic acid (vitamin C) 1,000 mg tablet (Vitamin C) 1,000 mg PO DAILY Supplement 12/27/22
ezetimibe 10 mg tablet 10 mg PO DAILY High Cholesterol 12/27/22
valsartan 160 mg tablet 80 mg PO QPM Blood Pressure 12/27/22
aspirin 81 mg chewable tablet 81 mg PO DAILY 30 days #30 tabs 12/29/22
cholecalciferol (vitamin D3) 125 mcg (5,000 unit) tablet (Vitamin D3) 125 mcg PO DAILY Supplement 03/01/23
Ultra Spectrum 1 tab PO DAILY Supplement 05/17/23
atorvastatin 80 mg tablet 80 mg PO QPM High Cholesterol 05/17/23
nitroglycerin 0.4 mg sublingual tablet (Nitrostat) 0.4 mg sublingual [id number] PRN chest pain 05/17/23
sulfamethoxazole 800 mg-trimethoprim 160 mg tablet 1 tab PO BID Infection 05/17/23
Held on 05/19/23. Instructions: discuss restarting with your urologist
psyllium 1 packet PO DAILY Constipation 01/28/25
Bone Flex 1 dose PO DAILY Supplement 01/29/25
ferrous sulfate 300 mg (60 mg iron) tablet 300 mg PO DAILY Supplement 01/29/25
folic acid-vit B6-vit B12 0.8 mg-50 mg-100 mcg tablet (Homocysteine Formula) 1 tab PO DAILY Supplement 01/29/25
hydralazine 25 mg tablet 25 mg PO BID Blood Pressure 01/29/25
mupirocin 2 % topical ointment 1 applic intranasal BID #1 tube 01/29/25
omeprazole 20 mg tablet,delayed release 20 mg PO DAILY Gastrointestinal Issue 01/29/25
Review of Systems
-
A 12 point Review of Systems was completed except as noted: Yes
Constitutional: Denies Fever
Respiratory: Denies Cough or Trouble Breathing
Cardiac: Denies Chest Pain or Palpitations
Musculoskeletal: Denies Edema
Physical Exam
Vital Signs
Vital Signs
Temp Pulse Resp BP Pulse Ox
98.1 F 67 16 120/51 93
02/11/25 11:10 02/11/25 11:10 02/11/25 11:10 02/11/25 11:10 02/11/25 11:10
Physical Exam
General: Well Developed, Well Nourished and Comfortable
HEENT: Anicteric and Moist Mucous Membranes
Respiratory: Clear and Non Labored Respirations
Cardiac: S1/S2 and Regular Rhythm
GI: Soft and Non Tender
Rectal: Deferred by Provider
Musculoskeletal: No Clubbing, No Cyanosis and No Edema (SHOSHANA stockings in place bilaterally)
Skin: Warm and Dry
Neuro: Awake, Alert, Oriented and No Motor Deficits
Psych: Calm
Laboratory Results
-
Laboratory Results
02/11/25 11:41
02/11/25 11:41
Total Bilirubin 0.4 mg/dl (0.2-1.3) 01/29/25 11:15
AST 23 U/L (17-59) 01/29/25 11:15
ALT 20 U/L (0-50) 01/29/25 11:15
Alkaline Phosphatase 46 U/L (38-126) 01/29/25 11:15
Data Reviewed
-
Lab Data: Labs Reviewed
Old Records: Reviewed
Impression / Plan
-
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
-Add fluid restriction 1200 mL/day
-Check urine electrolytes
-Recheck sodium in AM
Leukocytosis
-WBC count is significant higher than baseline for his CLL
-Suspect reactive following surgery as well as steroids
-Check Urine Culture and Blood Cultures
-Hematology involved
Acute on Chronic Anemia
-Check iron studies
-Defer decision on transfusion to Hematology and Orthopedics
Chronic Thrombocytopenia
-Patient received prednisone yesterday and now currently on hold
-Platelet count stable
Coronary Artery Disease s/p LAD Stent in Mar 2023
Lacunar Infarct
-Continue aspirin
Essential Hypertension
-Continue hydralazine and valsartan
Hyperlipidemia
-Continue Lipitor and Zetia
CKD Stage IIIA
-Creatinine at baseline
DVT prop: Aspirin
[2025-02-11] MEDS: NEURONTIN 200 MG PO ×2 (12:48→21:01)
[2025-02-11] MEDS: LIDOCAINE 4% PATCH 2 PATCH TOPICAL (12:49)
--- NOTE | 2025-02-11 13:03 | CM ---
Addendum entered by Beba Pollard RN 02/11/25 15:31:
CM received call from Norah at [facility] who stated that the can present case to their administration to see if they can accept. CM updated ortho PA.
Original Note:
CM sent referral via [facility] to [facility]. CM spoke with Norah to update on new referral. CM will await acceptance feedback.
--- NOTE | 2025-02-11 13:31 | W.PN.UPDATE ---
Addendum entered and electronically signed by Adelina Jovel MD 02/11/25 22:27:
UA suggestive of UTI so ceftriaxone started.
Original Note:
Update Note
Progress Note Update
This is an addendum to H&P written by Deisi Wright on 02/11/2025. �Patient seen and examined independently with PA. �Medical consultation for anemia/leukocytosis and hyponatremia.
84-year-old male past medical history of CAD status post LAD stent 2022, obstructive sleep apnea, CKD 3, GERD, hiatal hernia, chronic constipation, mild cognitive deficits, CLL with chronic thrombocytopenia/splenic marginal zone lymphoma,
multifactorial anemia secondary to iron deficiency/chronic disease, neurogenic bladder and self catheterizes, BPH, recurrent UTIs, chronic hyponatremia, hyperlipidemia, history of nonocclusive thrombus of right greater saphenous vein, venous
varicosities, splenomegaly, infarct of right internal capsule in 2022, Raynaud's disease, ankylosing spondylitis, cell carcinoma face status post Mohs, recurrent iritis, remote shingles, prediabetes, hearing impairment bilaterally, presenting for
elective right total hip arthroplasty on 02/10/2025.
Vital signs normal.
Lab work this morning showed white cell count which increased from 24 to 45. �Hemoglobin on 02/06 was 9.9 now 7.7. �Chronic thrombocytopenia platelets of 73.
Labs show sodium of 129, 127 later today from 130 on 02/06.
Patient with acute on chronic anemia likely secondary to surgical blood loss/dilutional in the setting of chronic CLL/anemia secondary to CKD. Anemia workup pending. Leukocytosis is likely reactive from surgery and recent steroids given for
thrombocytopenia. �Orthopedics recommending blood transfusion for hemoglobin under 7. �Oncology following. �Urinalysis pending given history of frequent UTIs. Check blood cultures.�
Patient also with worsening hyponatremia likely secondary to SIADH from surgery. �Check urine sodium, osmolality. �Fluid restriction.
[2025-02-11 13:40] LABS: Iron 38 ug/dl (49-181)
[2025-02-11 13:47] LABS: Ferritin 27.3 ng/ml (17.9-464.0)
[2025-02-11 13:50] LABS: Total Iron Binding Capacity 270 ug/dl (261-462)
[2025-02-11 14:18] LABS: Folate 9.7 ng/ml (2.76-20); Vitamin B12 748 pg/ml (239-931)
[2025-02-11] MEDS: FERRLECIT 110 MG IV (14:33)
[2025-02-11 15:00] LABS: Urine Character Slightly Cloudy (Clear)
[2025-02-11 15:18] LABS: Urine Squamous Cell >30 /LPF (Few)
[2025-02-11 15:20] LABS: Urine White Cell >100 /HPF (0-5)
[2025-02-11 15:22] LABS: Urine Red Blood Cell 0-2 /HPF (0-2)
[2025-02-11] MEDS: ROCEPHIN 1000 MG IV (16:54)
[2025-02-11] MEDS: FLUSH (NSS) 2 FLUSH IV (16:54)
[2025-02-11] MEDS: STERILE WATER FOR INJECTION 10 ML IV (16:54)
[2025-02-11] MEDS: LIPITOR 80 MG PO (16:57)
[2025-02-11] MEDS: DIOVAN PO (18:00)
[2025-02-11] MEDS: REMOVE LIDOCAINE PATCH 2 PATCH REMOVE (20:58)
[2025-02-11] MEDS: MELATONIN 5 MG PO (21:00)
[2025-02-12] VITALS (9 sets, daily range): BP systolic 99–156; BP diastolic 45–60; PULSE 79–89; O2SAT 93–97
[2025-02-12] MEDS: TYLENOL PO ×2 (02:16→05:01)
[2025-02-12 06:30] LABS: Hematocrit 23.3 % (39.0-52.0); Hemoglobin 7.5 g/dL (13.0-18.0); Mean Corp Hgb Conc. 32.2 g/dL (33.0-37.0); Mean Corpuscular Volume 92.1 fL (80.0-94.0); Platelet Count 78 10^3/uL (130-400); Red Cell Dist. Width 16.6 % (11.5-14.5)
[2025-02-12 06:47] LABS: Blood Urea Nitrogen 26 mg/dl (9-20); Calcium 8.3 mg/dl (8.4-10.2); Carbon Dioxide 28 mmol/L (22-30); Chloride 98 mmol/L (98-107); Estimated Creatinine Clearance 45 ml/min; Glucose 117 mg/dl (70-99); Potassium 5.1 mmol/L (3.5-5.1); Sodium 128 mmol/L (135-145); eGFR 53.50
[2025-02-12] MEDS: ROXICODONE 5 MG PO ×2 (06:47→09:06)
--- NOTE | 2025-02-12 07:14 | W.PN.HOSP.TC ---
Today's Communication/Plan
-
Post-op care as per Orthopedic primary
Pain control
Bowel regimen
PT/OT
Negative Urine cx, suspect sterile pyuria, d/c ceftriaxone and monitor off
Monitor H&H
Iron supplementation
Discharge planning Acute rehab
Assessment / Plan
Assessment / Plan
Physical Exam
General: No acute distress, appears comfortable at this time
HEENT: Anicteric and Moist Mucous Membranes
Respiratory: Clear and Non Labored Respirations, stable respiratory status on room air
Cardiac: S1/S2 and Regular Rhythm
GI: Soft and Non Tender
Musculoskeletal: No Clubbing, No Cyanosis and No Edema
Skin: Warm and Dry
Neuro: AOx3 conversant coherent
Psych: Calm
84M CAD CVA HTN HLD CKD CLL Neurogenic bladder self straight cath here for severe R hip osteoarthritis s/p R MARY w/ Dr Quintana 02/10/25. Hospitalist consulted for medical mgmt/evaluation Leukocytosis Anemia Hyponatremia
#severe R hip osteoarthritis s/p R TH
cont post op mgmt as per Ortho primary
pain control
PT/OT eval appreciated Acute Rehab
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
-fluid restriction 1200 mL/day
-Monitor Na
Leukocytosis
-WBC count is significant higher than baseline for his CLL
-Suspect reactive following surgery as well as steroids
-UA suggestive uti however Urine Culture noted No growth and Blood Cultures NGTD
-suspect sterile pyuria, empiric ceftriaxone discontinued (received 2 doses) monitor off abx
-Hematology eval appreciated
Acute on Chronic Anemia
Iron Deficiency Anemia
-agree Iron supplementation
-Defer decision on transfusion to Hematology and Orthopedics
Chronic Thrombocytopenia
-Patient received prednisone yesterday and now currently on hold
-Platelet count stable
Coronary Artery Disease s/p LAD Stent in Mar 2023
Lacunar Infarct
-Continue aspirin
Essential Hypertension
-Continue hydralazine and valsartan
Hyperlipidemia
-Continue Lipitor and Zetia
CKD Stage IIIA
-Creatinine at baseline
Constipation
cont bowel regimen
DVT prop: Aspirin as per Ortho
Discussed with patient and patient's Alycia
I spent a total of 50 minutes with the patient or on the floor. More than 50% of this time involved counseling and coordination of care.
Anticipated Discharge: 24 - 48 hours
Subjective/Interval History
-
Date of Service: February 12, 2025
No acute distress resting comfortably in bed. Pain relatively well control at this time with current pain regimen. Reports constipation. Alycia present during evaluation.
Objective Data
-
Labs:
Laboratory Results
02/12/25
05:41
WBC 46.4 H*
Hgb 7.5 L
Hct 23.3 L
Plt Count 78 L
Sodium 128 L
Potassium 5.1
Chloride 98
Carbon Dioxide 28
BUN 26 H
Creatinine 1.3
Glucose 117 H
Calcium 8.3 L
Vital Signs:
Vital Signs
Temp Pulse Resp BP Pulse Ox
98.9 F 72 18 121/56 93
02/12/25 03:31 02/12/25 03:31 02/12/25 03:31 02/12/25 03:31 02/12/25 03:31
I&O
02/11/25 02/12/25 02/13/25
06:59 06:59 06:59
Intake Total 1160 / 1160 710 / 710
Output Total 900 / 900 750 / 750 600 / 600
Balance 260 / 260 -40 / -40 -600 / -600
--- NOTE | 2025-02-12 07:51 | W.PN.UPDATE ---
Update Note
Progress Note Update
Pt has acute blood loss anemia complicated by underlying CLL and thrombocytopenia but his Hb is now stabilized and shows no further decline. I recommend no transfusion as this is associated with higher prosthetic joint infection risk.
Additionally his sodium level and hyponatremia seem to be slightly improved. If he shows good physical effort with physical therapy I think he can probably go home today.
[2025-02-12] MEDS: SENOKOT 17.2 MG PO ×2 (08:26→20:39)
[2025-02-12] MEDS: TYLENOL 650 MG PO ×4 (08:26→20:39)
[2025-02-12] MEDS: ZETIA 10 MG PO (08:26)
[2025-02-12] MEDS: PROTONIX 20 MG PO (08:26)
[2025-02-12] MEDS: COLACE 100 MG PO ×2 (08:26→20:38)
[2025-02-12] MEDS: METAMUCIL, KONSYL 1 PACKET PO (08:26)
[2025-02-12] MEDS: VITAMIN D3 (cholecalciferol) 125 MCG PO (08:27)
[2025-02-12] MEDS: APRESOLINE 25 MG PO (08:27)
[2025-02-12] MEDS: LOW STRENGTH ASPIRIN 81 MG PO ×2 (08:27→20:38)
[2025-02-12] MEDS: LIDOCAINE 4% PATCH 2 PATCH TOPICAL (08:27)
--- NOTE | 2025-02-12 09:34 | W.PN.ONC ---
Documented by User: Lesa Green MD, Resident 02/12/25 12:45
Today's Communication / Plan
-
On ceftriaxone
Monitor CBC
Iron
Consider outpatient GI eval for EN
Impression
Impression
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 He has had a bump in his white blood cell count
from baseline 24-> 45.6. He is also anemia with Hg 7.5. Heme/onc was consulted for further evaluation.. Likely reactive reactive however UA was positive for UTI and he was started on ceftriaxone. Currently no other complaints.
Plan
Plan
CLL vs MZL
--Sees Dr. Whitfield at [facility] for management
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
--Not on any current therapy - monitor CBC with dif
Leukocytosis - multifactorial in setting of CLL, reactive from surgery and UTI
--On ceftriaxone for UTI
--Montior WBC and temp curve
--Incentive spirometry as pneumonia is one of the most common post-op infectious complications
Multifactorial anemia in setting of CKD, CLL, post-op blood loss, dilutional, EN
--Monitor hg - cross, type and screen, okay to transfuse for <7 per orthopedics
--s/p 1/5 dose IV iron
--Consider GI eval outpatient for cause of EN
Thrombocytosis
--Ptl stable - monitor
DVT asa 81 BID and foot pumps
Subjective/Objective
Subjective/Objective
Ongoing right hip pain and some constipation, but no other complaints. He denies any burning with urination, hematuria, cough, URI symptoms.
Vital Signs:
Vital Signs
Temp Pulse Resp BP Pulse Ox
97.4 F 75 16 136/59 95
02/12/25 07:10 02/12/25 07:10 02/12/25 07:10 02/12/25 07:10 02/12/25 07:10
Lab Results:
Laboratory Data
WBC 46.4 10^3/uL (4.8-10.8) H* 02/12/25 05:41
Hgb 7.5 g/dL (13.0-18.0) L 02/12/25 05:41
Plt Count 78 10^3/uL (130-400) L 02/12/25 05:41
eGFR 53.50 02/12/25 05:41
Orders
Orders
Orders From Last 24 Hours
02/11/25 10:31
Add On- LAB Routine
02/11/25 10:32
Spirometry, Incentive [Rx Incentive Spirometry] [RESP] Routine

Documented by User: Herb Penaloza MD 02/12/25 16:36
Today's Communication / Plan
-
On ceftriaxone
Monitor CBC
Iron
Consider outpatient GI eval for EN
Attending: His last colonoscopy was about 3 years ago. At this point, he seems to have an unexplained iron deficiency. He should ideally undergo a GI evaluation, although at his age to the risks to go up. I advised him to discuss this with his
family physician as well as the GI physicians who did the scoping 3 years ago. Thrombocytopenia is stable, presumably due to his CLL. Management of that as per [facility].
--- NOTE | 2025-02-12 12:13 | W.PN.ORTHO ---
Today's Communication / Plan
-
Await blood culture results.
Continue to trend WBC, hgb, platelet count, and sodium.
Pt accepted to [place] [facility] pending insurance auth.
Assessment
.
Distal Motor Intact: Yes
Dressing:
Scant areas of incisional bleeding noted on dressing.
Assessment:
R hip OA s/p R MARY w/ Dr Quintana 02/10/25
DVT prophylaxis - ASA 81 mg PO BID d/t chronic thrombocytopenia, b/l venous foot pumps
Hiccups POD 2 - did add low dose Baclofen prn for this/muscle spasms
- Continue PPI
HTN - + parameters - monitor BP
CAD, status post PCI with CAROLA to LAD 03/2023
Mild carotid atherosclerosis
- Continue ASA but increase to BID dosing x4 weeks for blood clot prevention
INDIA, non-compliant with device - monitor O2
- IS
- Add supplemental O2 HS
CKD stage 3 - minimize nephrotoxins
GERD and hiatal hernia - continue PPI therapy
Chronic constipation - continue daily Miralax with bowel regimen of Colace and Senna
Mild cognitive deficits - minimize opioids as able
CLL with chronic thrombocytopenia, diagnosed 01/2019 - profound leukocytosis noted post-op - WBC 45.9 -> 50 -> 46.4 today
- Steroid taper initially to promote platelet production held
- Consulted heme -> elevated WBC likely reactive from surgical stress, steroids. Pt overall asymptomatic. Afebrile and physical exam relatively benign
- UA initially indicative of UTI; however, culture w/o growth. Was started on empiric Ceftriaxone per hospitalist
- Await blood cultures
- Continue to monitor CBC
- Per heme, platelet count of 70+ adequate for hemostasis. Platelet ct stable currently
Multifactorial anemia (chronic disease, iron deficiency, and now acute blood loss) - hgb 9.8 pre-op -> mid 7s currently
- Prefer not to transfuse unless hgb </= 7, pt asymptomatic, and hemodynamically unstable. Holding currently d/t infection risk. Was discussed with surgeon.
- Iron notably low - supplement w/ IV iron daily. Pt reports was holding his PO iron supplement pre-op; did advise to go back on upon d/c. Did discuss dietary sources of iron as well
- Vit B12, folate stable
- Trend CBC
Neurogenic bladder with self catheterization
History of recurrent UTIs due to the above
- Bladder scan/straight cath prn
- Flomax prn
Chronic hyponatremia, asymptomatic - Sodium 130 pre-op -> 128 today
- Urine sodium, urine/serum osmolality show cause likely SIADH
- Fluid restriction
- Consider nephrology consult
Hyperlipidemia
H/o non-occlusive thrombus of right greater saphenous vein, resolved on b/l venous extremity study 05/2024
Venous varicosities with insufficiency
Right pulmonary nodule
Colon polyps
Diverticulosis.
Umbilical hernia, inoperable per patient
Splenomegaly
Bilateral renal cysts
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
Raynaud's disease.
Ankylosing spondylitis
Basal cell carcinoma, face, status post MOHS.
BPH with LUTS, status post TURP
Bladder diverticulum
History of recurrent iritis
HLA B27 positive
Remote shingles
Prediabetes, A1c 5.7
Hearing impairment bilaterally
Plan
.
Surgery / Date: R MARY w/ Dr Quintana 02/10/25
DVT Prophylaxis: Aspirin (81 mg PO BID )
Activity:
Out of bed.
PT/OT
Discharge Plan: Rehab
Subjective
.
.:
Patient resting comfortably in bed this AM.
R hip pain 'sore' but better than yesterday. Will add additional Gabapentin dose for neuropathic pain.
Mildly fatigued but otherwise voices no complaints.
Labs trending in appropriate direction.
Vital Signs and Labs
.
Vital Signs and Labs:
Lab Results
02/12/25 05:41
02/12/25 05:41
Temp Pulse Resp BP Pulse Ox
98.1 F 87 16 123/45 95
02/12/25 11:10 02/12/25 11:10 02/12/25 11:10 02/12/25 11:10 02/12/25 11:10
Non-invasive Hgb result: 11.9
Physical Exam
-
HEENT: No pallor, cyanosis, or jaundice. Throat clear.
NECK: Supple. No JVD.
RESPIRATORY: Lungs clear to auscultation.
CVS: S1, S2 normal. RRR.�
ABDOMEN: Soft, non-tender. No distension.
EXTREMITIES: Strength equal, no calf pain with palpation/dorsiflexion. Calves soft.
REGIONAL BUSINESS MANAGER: AOx3. sorting machine operator grossly intact
[2025-02-12] MEDS: LIORESAL 2.5 MG PO (12:24)
[2025-02-12] MEDS: NEURONTIN 200 MG PO ×2 (12:25→20:38)
[2025-02-12] MEDS: ROXICODONE 10 MG PO ×2 (12:26→17:55)
--- NOTE | 2025-02-12 13:35 | CM ---
Addendum entered by Beba Pollard RN 02/12/25 16:13:
CM offered Peer to Peer appeal. Daughter denied at this time.
Addendum entered by Beba Pollard RN 02/12/25 16:06:
CM spoke with patient and patient's daughter Carlyn [phone] who is in agreement with home discharge with VN and private pay care givers. CM provide patient's daughter with list of private pay agencies. CM provided daughter with contact for
[employer] at [facility] to assist with private pay caregivers. Patient will have daughters and grandson's available for care 24 hours in the home.
CM will call daughter prior to discharge.
Anitha Pena
[phone]
Sherrie
[phone]
Kaitlin
[phone]
CM updated ortho PA.
Addendum entered by Beba Pollard RN 02/12/25 15:10:
Patient has been denied Acute Rehab as per medical equipment repair technician. Reference Number [id number].
Original Note:
CM called [facility] for authorization for Acute Rehab at [place]. Authorization is pended for medical equipment repair technician review.
[2025-02-12] MEDS: FERRLECIT 110 MG IV (14:58)
[2025-02-12] MEDS: ROCEPHIN 1000 MG IV (15:00)
[2025-02-12] MEDS: STERILE WATER FOR INJECTION 10 ML IV (15:00)
[2025-02-12] MEDS: DIOVAN 80 MG PO (17:56)
[2025-02-12] MEDS: LIPITOR 80 MG PO (17:56)
[2025-02-12] MEDS: APRESOLINE PO (20:38)
[2025-02-12] MEDS: REMOVE LIDOCAINE PATCH 2 PATCH REMOVE (20:39)
[2025-02-12] MEDS: MELATONIN 5 MG PO (20:40)
[2025-02-13] MEDS: TYLENOL PO ×2 (00:21→04:57)
[2025-02-13 03:13] VITALS: BP 121/61
[2025-02-13 07:10] VITALS: BP 120/56
--- NOTE | 2025-02-13 07:24 | W.PN.HOSP.TC ---
Today's Communication/Plan
-
PT/OT
pain control
post-op care as per Orthopedic
Transferred to Hospitalist service for further medical mgmt
Keflex for infection prophylaxis
Baclofen prn Hiccups
Assessment / Plan
Assessment / Plan
Physical Exam
General: No acute distress, appears comfortable at this time
HEENT: Anicteric and Moist Mucous Membranes
Respiratory: Clear and Non Labored Respirations, stable respiratory status on room air
Cardiac: S1/S2 and Regular Rhythm
GI: Soft and Non Tender, hiccups
Musculoskeletal: No Clubbing, No Cyanosis and No Edema
Skin: Warm and Dry
Neuro: AOx3 conversant coherent
Psych: Calm
84M CAD CVA HTN HLD CKD CLL Neurogenic bladder self straight cath here for severe R hip osteoarthritis s/p R MARY w/ Dr Quintana 02/10/25. Hospitalist consulted for medical mgmt/evaluation Leukocytosis Anemia Hyponatremia
#severe R hip osteoarthritis s/p R TH
cont post op mgmt as per Ortho primary
pain control
PT/OT eval appreciated Acute Rehab unfortunately denied by insurance. Significant Physical Deconditioning however persists, PMR eval requested.
Transferred to Hospitalist service 02/13 for further medical mgmt.
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
-fluid restriction 1200 mL/day
-Monitor Na
Hiccups
-Baclofen 2.5 mg TIDPRN
Leukocytosis
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
-likely stress reactive following surgery as well as steroids
-UA suggestive uti however Urine Culture noted No growth and Blood Cultures NGTD
-suspect sterile pyuria, empiric ceftriaxone discontinued (received 2 doses), continues on Keflex for infection prophylaxis (to continue with cefadroxil on discharge per Orthopedic- cefadroxil not available in hospital)
-Hematology eval appreciated
Acute on Chronic Anemia
Iron Deficiency Anemia
-agree Iron supplementation
-Defer decision on transfusion to Hematology and Orthopedics
-Per orthopedics planned for close outpt follow up H&H and possible outpt transfusion (given increased risk prosthetic infection w/ blood transfusions)
Chronic Thrombocytopenia
-Platelet count stable
Coronary Artery Disease s/p LAD Stent in Mar 2023
Lacunar Infarct
-Continue aspirin
Essential Hypertension
-Continue hydralazine and valsartan
Hyperlipidemia
-Continue Lipitor and Zetia
CKD Stage IIIA
-Creatinine at baseline
Constipation
cont bowel regimen
DVT prop: Aspirin as per Ortho
Discussed with patient and patient's Alycia
I spent a total of 50 minutes with the patient or on the floor. More than 50% of this time involved counseling and coordination of care.
Anticipated Discharge: 24 - 48 hours
Subjective/Interval History
-
Date of Service: February 13, 2025
No acute distress, sitting up comfortably in chair. Pain persists, recently received pain medication. Hiccups.
Objective Data
-
Labs:
Laboratory Results
02/13/25
06:38
WBC Pending
Hgb Pending
Hct Pending
Plt Count Pending
Sodium Pending
Potassium Pending
Chloride Pending
Carbon Dioxide Pending
BUN Pending
Creatinine Pending
Glucose Pending
Calcium Pending
Vital Signs:
Vital Signs
Temp Pulse Resp BP Pulse Ox
99 F 83 16 121/61 94
02/13/25 03:13 02/13/25 03:13 02/13/25 03:13 02/13/25 03:13 02/13/25 03:13
I&O
02/12/25 02/13/25 02/14/25
06:59 06:59 06:59
Intake Total 710 / 710
Output Total 750 / 750 600 / 600
Balance -40 / -40 -600 / -600
[2025-02-13 07:39] LABS: Blood Urea Nitrogen 27 mg/dl (9-20); Calcium 8.2 mg/dl (8.4-10.2); Carbon Dioxide 27 mmol/L (22-30); Chloride 100 mmol/L (98-107); Estimated Creatinine Clearance 42 ml/min; Glucose 122 mg/dl (70-99); Potassium 4.8 mmol/L (3.5-5.1); Sodium 128 mmol/L (135-145); eGFR 48.95
--- NOTE | 2025-02-13 07:43 | W.PN.ORTHO ---
Today's Communication / Plan
-
Continue treatment per the primary team, whose efforts are very much appreciated
Dispo likely home with personal caretakers- appreciate CM- Mack was denied
Blood Cxs NGTD
Continue WBAT RLE on walker/assistance
PT/OT, THPs x 10-12 weeks
81mg ASA BID for DVT prophylaxis
CBC/BMP repeat in 1 week (Rx on chart) and faxed to PCP (Dr. Ward) and Heme (Dr. Whitfield)
Suggest 1 week of Cefadroxil (Rx sent to outpatient pharmacy)
Pain control/ice to hip
Dressing to remain 7-10 days
Outpatient follow-up in 4 weeks for clinical check
Assessment
.
Distal Motor Intact: Yes
Dressing:
Clean, dry and intact. Scant strikethrough, contained
Assessment:
POD#3 Right MARY
Overall, all things considered, doing/feeling well
Calf soft, nontender
Plan
.
Surgery / Date: Right MARY Mar 01 (Lilian)
DVT Prophylaxis: Aspirin (81mg BID)
Activity:
Out of bed. WBAT on walker with walker
PT/OT, THPs
Discharge Plan: Other (per CM- home with personal care takers?)
Subjective
.
.:
Patient resting comfortably. feeling reasonably well. No SOB, lighthead, CP.
Vital Signs and Labs
.
Vital Signs and Labs:
Lab Results
02/13/25 06:38
Temp Pulse Resp BP Pulse Ox
98.1 F 77 16 120/56 97
02/13/25 07:10 02/13/25 07:10 02/13/25 07:10 02/13/25 07:10 02/13/25 07:10
Non-invasive Hgb result: 11.9
--- NOTE | 2025-02-13 07:59 | W.DS.TRANS ---
DC Summary - Barrel Inspector Tight
-
Discharge Instructions:
Discharge Diagnosis/Procedures R hip OA s/p R MARY w/ Dr Quintana 02/10/25
Diet Other diet,Restrict fluids to 48 oz
Additional Diets Diabetic carb controlled diet x1 week for wound
healing/infection prevention.
Adequate hydration, minimize opioids, and wear
TEDs stockings to prevent low blood pressure/
dizziness.
Activity As tolerated,With Walker
Driving Restrictions Not until seen by your Dr
Bathing Restrictions OK to Shower
Blood Work CBC without diff and BMP (Attn: sodium) on
02/15/25, with results to primary care
and hematology
Other Services PT,OT,VN
Wound Care Dressing to be removed 1 week post-surgery.
Instructions:
Stand-Alone Forms: Total Hip/Knee Replacement D/C
Changes to Home Medications: No
Discharge Medications:
DC Medications w/original date entered in [employer]
ascorbic acid (vitamin C) 1,000 mg tablet (Vitamin C) 1,000 mg PO DAILY Supplement 12/27/22
ezetimibe 10 mg tablet 10 mg PO DAILY High Cholesterol 12/27/22
cholecalciferol (vitamin D3) 125 mcg (5,000 unit) tablet (Vitamin D3) 125 mcg PO DAILY Supplement 03/01/23
Ultra Spectrum 1 tab PO DAILY Supplement 05/17/23
Held on 02/12/25. Instructions: Resume on 02/17/25.
atorvastatin 80 mg tablet 80 mg PO QPM High Cholesterol 05/17/23
nitroglycerin 0.4 mg sublingual tablet (Nitrostat) 0.4 mg sublingual [id number] PRN chest pain 05/17/23
psyllium 1 packet PO DAILY Constipation 01/28/25
Bone Flex 1 dose PO DAILY Supplement 01/29/25
Held on 02/12/25. Instructions: Resume on 02/17/25.
folic acid-vit B6-vit B12 0.8 mg-50 mg-100 mcg tablet (Homocysteine Formula) 1 tab PO DAILY Supplement 01/29/25
Held on 02/12/25. Instructions: Resume on 02/17/25.
mupirocin 2 % topical ointment 1 applic intranasal BID #1 tube 01/29/25
omeprazole 20 mg tablet,delayed release 20 mg PO DAILY Gastrointestinal Issue 01/29/25
acetaminophen 325 mg tablet 650 mg (2 x 325 mg) PO Q4HWA #60 tabs 02/12/25
aspirin 81 mg chewable tablet 81 mg PO BID Blood clot prevention/tx 30 days #60 tabs 02/12/25
docusate sodium 100 mg capsule 100 mg PO BID #30 caps 02/12/25
ferrous sulfate 325 mg (65 mg iron) tablet 325 mg PO DAILY #30 tabs 02/12/25
gabapentin 100 mg capsule 200 mg (2 x 100 mg) PO BID neuropathic pain/sleep #20 caps 02/12/25
hydralazine 25 mg tablet 25 mg PO BID Blood Pressure #1 tab 02/12/25
lidocaine 4 % topical patch 2 patch topical DAILY #30 ea 02/12/25
melatonin 5 mg tablet 5 mg PO HS #1 tab 02/12/25
ondansetron HCl 4 mg tablet 4 mg PO Q6H PRN nausea and vomiting #30 tabs 02/12/25
oxycodone 5 mg tablet 5 - 10 mg (1 - 2 x 5 mg) PO Q6H PRN moderate-severe pain #30 tabs 02/12/25
sennosides 8.6 mg tablet (Taya-saba) 17.2 mg (2 x 8.6 mg) PO BID #30 tabs 02/12/25
valsartan 160 mg tablet 80 mg (1/2 x 160 mg) PO QPM Blood Pressure #1 tab 02/12/25
cefadroxil 500 mg capsule 500 mg PO BID Infection #14 caps 02/13/25
Home Medication Changes
Pending Results: Yes
Additional Pending Results:
Mar 01 labs (WBC, hgb, platelets, Na)
[2025-02-13 08:07] LABS: Hematocrit 22.3 % (39.0-52.0); Hemoglobin 7.1 g/dL (13.0-18.0); Mean Corp Hgb Conc. 31.8 g/dL (33.0-37.0); Mean Corpuscular Volume 91.8 fL (80.0-94.0); Nucleated Red Blood Cells % 0 % (-); Platelet Count 70 10^3/uL (130-400); Red Cell Dist. Width 16.6 % (11.5-14.5)
[2025-02-13] MEDS: METAMUCIL, KONSYL 1 PACKET PO (08:17)
[2025-02-13] MEDS: NEURONTIN 200 MG PO ×2 (08:18→20:30)
[2025-02-13] MEDS: LIDOCAINE 4% PATCH 2 PATCH TOPICAL (08:18)
[2025-02-13] MEDS: TYLENOL 650 MG PO ×4 (08:19→20:31)
[2025-02-13] MEDS: ROXICODONE 10 MG PO (08:19)
[2025-02-13] MEDS: VITAMIN D3 (cholecalciferol) 125 MCG PO (08:19)
[2025-02-13] MEDS: COLACE 100 MG PO ×2 (08:20→20:30)
[2025-02-13] MEDS: SENOKOT 17.2 MG PO ×2 (08:20→20:31)
[2025-02-13] MEDS: LOW STRENGTH ASPIRIN 81 MG PO ×2 (08:20→20:30)
[2025-02-13] MEDS: PROTONIX 20 MG PO (08:21)
[2025-02-13] MEDS: APRESOLINE PO ×2 (08:21→20:29)
[2025-02-13] MEDS: ZETIA 10 MG PO (08:21)
--- NOTE | 2025-02-13 09:02 | W.PN.UPDATE ---
Update Note
Progress Note Update
Pt noted to have slight decline in Hb from 7.5 to 7.1 but his heart rate is 77 and his baseline hb is mid-9 to low 10 so he is fairly well compensated for low hb at baseline. futhermore transfusion does show potential to increase PJI risk by a
significant amount (odds ratio 1.71) and furthermore he is at heightened infection risk due to cll so I favor no transfusion at this time.^
^ https://www.arthroplastyjournal.org/article/P[address]93-4224(91)71773-3/abstract#:~:text=The%20prevalences%20of%20surgical%2Dsite,total%20hip%20and%20knee%20arthroplasty.
--- NOTE | 2025-02-13 09:28 | W.PN.UPDATE ---
Addendum entered and electronically signed by Albert Waters PA-C 02/13/25 10:53:
Hospitalist, Clementine Hawkins, has graciously accepted patient to his service. D/c cancelled for today. Continue Tx per Dr. Spring and consultants. D/c plan is pretty much complete, in anticipation of D/c 24-48 hours. Appreciate PT/OT, CM, etc. Rxs left on
chart for CBC, BMP (Attn, Na), and H&H next week (dates annotated), with results faxed to PCP, Dr. Ward, and Hemetologist, Dr. Whitfield. Will follow.
Original Note:
Update Note
Progress Note Update
wENT TO SEE patient, he was in [place]. spoke to physical therapist who said he was very difficult to get OOB and his would probably not be strong enough to help him safely. They will try again this afternoon but he may either need more time or a
different plan than home, such as jones.
--- NOTE | 2025-02-13 10:06 | CM ---
Addendum entered by Toby Ponce 02/13/25 12:02:
PRESLEY had a few conversation with pt's daughter Anitha and she confirmed that pt will have all after care services tomorrow and she requested 12:00 p.m. discharge time. pt's daughter stated that she and pt's grandson who is a straightener gun parts will
transport pt home. Pt's daughter confirmed that [facility] 24/7 caregiver services will start tomorrow.
Please fax discharge instructions to [facility] at [phone]
D/C plan: home tomorrow with [facility], [facility] 24/7 caregiver services and family support. Daughter and pt's grandson to transport.
Addendum entered by Toby Ponce 02/13/25 10:35:
Discharge has been cancelled for today.
PRESLEY spoke to pt's daughter Anitha who stated she is coordinating pt's discharge for tomorrow. Pt's daughter stated that pt's grandson will transport the pt home tomorrow and she is confirming the time.
Pt's daughter stated she is coordinating with [facility] caregiver services market survey representative Avelina to confirm what time tomorrow caregiver services can be started.
Pt's daughter Anitha state when she confirms everything she will let me know what time tomorrow pt's will be transported home.
[facility] will provide skilled RN, PT and OT
D/C plan: home tomorrow with [facility], [facility] 24/7 caregiver services and family support. Grandson to transport.
Original Note:
CM following re: discharge planning.
Reviewed pt's chart, met with pt. Pt's spouse at bedside. CM spoke to pt's daughter Sherrie to coordinate discharge plan.
Discharge order noted. Both pt and his spouse are aware. Pt stated he would prefer to stay here another day if possible.
IMM reviewed, placed on chat, pt has a copy.
Pt's spouse asked to coordinate pt's discharge with pot's daughter Sherrie. CM spoke to pt's daughter, she has been informed that pt is for discharge today. Pt's daughter did state that a plan will be for pt to return back home with [facility] and she is
working with [facility] for 24/7 caregiver services. Pt's daughter Sherrie stated she is out of town and she is in communication with her sister Anitha to transport pt home and to help at home till caregiver services in place.
PRESLEY received a phone call from [facility] market survey representative who stated she is working to provide 24/7 caregiver services for pt at home.
Please fax discharge instructions to [facility] at [phone]
D/C plan: home with [facility], [facility] caregiver services and family support. Daughter to transport.
[2025-02-13] MEDS: DILAUDID 0.25 MG IV (10:42)
[2025-02-13 11:05] VITALS: BP 108/55
[2025-02-13] MEDS: FERRLECIT 110 MG IV (12:50)
[2025-02-13 15:20] VITALS: BP 113/51
--- NOTE | 2025-02-13 15:31 | PTCARENOTE ---
pt uncomfortable on presentation, did perform PT walked hallway OOB to chair for 2.5hrs. received stat order .25mg Dilaudid this seem to help stabilize pain. PT saw pt a second time for bed mobility. d/c was held for pain/labs/deconditioning.
[2025-02-13] MEDS: ROXICODONE 5 MG PO (15:58)
[2025-02-13] MEDS: DIOVAN PO (15:59)
[2025-02-13] MEDS: KEFLEX 500 MG PO ×2 (16:00→20:31)
[2025-02-13] MEDS: LIPITOR 80 MG PO (16:00)
[2025-02-13 19:05] VITALS: BP 121/60
[2025-02-13] MEDS: REMOVE LIDOCAINE PATCH 2 PATCH REMOVE (20:30)
[2025-02-13] MEDS: MELATONIN 5 MG PO (20:32)
[2025-02-13 22:47] VITALS: BP 136/58
[2025-02-14] MEDS: TYLENOL PO ×2 (00:17→04:56)
[2025-02-14 06:06] LABS: Hematocrit 22.8 % (39.0-52.0); Hemoglobin 7.3 g/dL (13.0-18.0); Mean Corp Hgb Conc. 32.0 g/dL (33.0-37.0); Mean Corpuscular Volume 91.6 fL (80.0-94.0); Platelet Count 77 10^3/uL (130-400); Red Cell Dist. Width 16.6 % (11.5-14.5)
[2025-02-14 06:25] LABS: Blood Urea Nitrogen 28 mg/dl (9-20); Calcium 8.3 mg/dl (8.4-10.2); Carbon Dioxide 26 mmol/L (22-30); Chloride 100 mmol/L (98-107); Estimated Creatinine Clearance 42 ml/min; Glucose 112 mg/dl (70-99); Magnesium 2.0 mg/dl (1.6-2.3); Potassium 4.7 mmol/L (3.5-5.1); Sodium 129 mmol/L (135-145); eGFR 48.95
[2025-02-14 07:05] VITALS: BP 137/61
[2025-02-14] MEDS: SENOKOT 17.2 MG PO (09:00)
[2025-02-14 09:02] VITALS: BP 139/60; PULSE 81; O2SAT 98
[2025-02-14] MEDS: TYLENOL 650 MG PO ×2 (09:34→12:41)
[2025-02-14] MEDS: ROXICODONE 10 MG PO (09:34)
[2025-02-14] MEDS: KEFLEX 500 MG PO (09:35)
[2025-02-14] MEDS: ZETIA 10 MG PO (09:36)
[2025-02-14] MEDS: LOW STRENGTH ASPIRIN 81 MG PO (09:36)
[2025-02-14] MEDS: COLACE 100 MG PO (09:36)
[2025-02-14] MEDS: VITAMIN D3 (cholecalciferol) 125 MCG PO (09:37)
[2025-02-14] MEDS: LIDOCAINE 4% PATCH 2 PATCH TOPICAL (09:37)
[2025-02-14] MEDS: APRESOLINE PO (09:38)
[2025-02-14] MEDS: PROTONIX 20 MG PO (09:41)
[2025-02-14] MEDS: NEURONTIN 200 MG PO (09:41)
[2025-02-14] MEDS: METAMUCIL, KONSYL 1 PACKET PO (09:44)
[2025-02-14] MEDS: LIORESAL 2.5 MG PO (09:49)
--- NOTE | 2025-02-14 09:51 | W.PN.HOSP.TC ---
Today's Communication/Plan
-
discharge
Assessment / Plan
Assessment / Plan
Physical Exam
General: No acute distress, appears comfortable at this time
HEENT: Anicteric and Moist Mucous Membranes
Respiratory: Clear and Non Labored Respirations, stable respiratory status on room air
Cardiac: S1/S2 and Regular Rhythm
GI: Soft and Non Tender, hiccups
Musculoskeletal: No Clubbing, No Cyanosis and No Edema
Skin: Warm and Dry
Neuro: AOx3 conversant coherent
Psych: Calm
84M CAD CVA HTN HLD CKD CLL Neurogenic bladder self straight cath here for severe R hip osteoarthritis s/p R MARY w/ Dr Quintana 02/10/25. Hospitalist consulted for medical mgmt/evaluation Leukocytosis Anemia Hyponatremia
#severe R hip osteoarthritis s/p R TH
cont post op mgmt as per Ortho primary
pain control
PT/OT eval appreciated Acute Rehab unfortunately denied by insurance. Significant Physical Deconditioning however persisted
Transferred to Hospitalist service 02/13 for further medical mgmt.
02/14 Patient further improved, good family support system, home services arranged, stable for discharge
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
-fluid restriction 1200 mL/day, 48 oz on discharge
-improving
-outpt follow up
Hiccups
-Baclofen 2.5 mg TIDPRN
-suspect constipation contributing
Leukocytosis
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
-likely stress reactive following surgery as well as steroids
-UA suggestive uti however Urine Culture noted No growth and Blood Cultures NGTD
-suspect sterile pyuria, empiric ceftriaxone discontinued (received 2 doses), continues on Keflex for infection prophylaxis (to continue with cefadroxil on discharge per Orthopedic- cefadroxil not available in hospital)
-Hematology eval appreciated
Acute on Chronic Anemia
Iron Deficiency Anemia
-agree Iron supplementation
-Defer decision on transfusion to Hematology and Orthopedics
-Per orthopedics planned for close outpt follow up H&H and possible outpt transfusion (given increased risk prosthetic infection w/ blood transfusions)
Chronic Thrombocytopenia
-Platelet count stable
Coronary Artery Disease s/p LAD Stent in Mar 2023
Lacunar Infarct
-Continue aspirin
Essential Hypertension
-Continue hydralazine and valsartan
Hyperlipidemia
-Continue Lipitor and Zetia
CKD Stage IIIA
-Creatinine at baseline
Constipation
cont bowel regimen
DVT prop: Aspirin as per Ortho
Medically stable for discharge home with home services and outpatient follow up recommendations.
Discussed with patient, patient's Alycia, and patient's daughter Eryn
Total Time Preparing Discharge __40 minutes including examination of the patient, summary of the hospital stay, instructions for continuing care to all relevant caregivers; and preparation of discharge records, prescriptions, and referral
forms if necessary.
Anticipated Discharge: Today
Subjective/Interval History
-
Date of Service: February 14, 2025
Seen and examined at bedside in no acute distress. Sitting up in chair. Pain persists but manageable with current pain regimen. Hiccups.
Objective Data
-
Labs:
Laboratory Results
02/14/25
05:27
WBC 38.7 H
Hgb 7.3 L
Hct 22.8 L
Plt Count 77 L
Sodium 129 L
Potassium 4.7
Chloride 100
Carbon Dioxide 26
BUN 28 H
Creatinine 1.4 H
Glucose 112 H
Calcium 8.3 L
Vital Signs:
Vital Signs
Temp Pulse Resp BP Pulse Ox
99.2 F 77 16 137/61 94
02/14/25 07:05 02/14/25 07:05 02/14/25 07:05 02/14/25 09:38 02/14/25 07:05
I&O
02/13/25 02/14/25 02/15/25
06:59 06:59 06:59
Intake Total 1080 / 1080 480 / 480
Output Total 600 / 600 550 / 550 1250 / 1250
Balance -600 / -600 530 / 530 -770 / -770
--- NOTE | 2025-02-14 10:17 | W.PN.ORTHO ---
Today's Communication / Plan
-
Continue treatment per the primary team, whose efforts are very much appreciated. Patient has been accepted to Dr. Spring's service
Dispo likely home with personal caretakers- appreciate KEVIN Mack was denied- appeal?
Blood Cxs NGTD. Trend WBC, Hgb, Plt, Na
Continue WBAT RLE on walker/assistance
PT/OT, THPs x 10-12 weeks
81mg ASA BID for DVT prophylaxis
CBC/BMP repeat in 1 week (Rx on chart) and faxed to PCP (Dr. Ward) and Heme (Dr. Whitfield)
Suggest 1 week of Cefadroxil (Rx sent to outpatient pharmacy)
Pain control/ice to hip
Dressing to remain 7-10 days
Outpatient follow-up in 4 weeks for clinical check
Assessment
.
Distal Motor Intact: Yes
Dressing:
Clean, dry and intact. Scan strikethrough in Aquacel
Assessment:
POD#4 Right MARY
All things considered doing/feeling well
Calf soft, nontender
Plan
.
Surgery / Date: Right MARY Mar 01 (Lilian)
DVT Prophylaxis: Aspirin
Activity:
Out of bed. WBAT RLE on walker/assistance
PT/OT, THPs
Discharge Plan: Other (appreciate CM. Deni Mack? home with personal care takers?)
Subjective
.
.:
Patient seated comfortably bedside. Pain endorsed right hip, otherwise no other complaints. at bedside
Vital Signs and Labs
.
Vital Signs and Labs:
Lab Results
02/14/25 05:27
02/14/25 05:27
Temp Pulse Resp BP Pulse Ox
99.2 F 77 16 137/61 94
02/14/25 07:05 02/14/25 07:05 02/14/25 07:05 02/14/25 09:38 02/14/25 07:05
Non-invasive Hgb result: 11.9
--- NOTE | 2025-02-14 11:38 | CHAP ---
Mr. Pena was enjoying a visit from his supportive . Asked how he was doing, he said, 'I don't have much juice.' He welcomed prayer. Emotional and spiritual support provided.
--- NOTE | 2025-02-14 12:40 | W.DCSUMMARY ---
Discharge Summary
Discharge Data
Date of Admission: 02/10/25
Date of Discharge: 02/14/25
-
Pending Results: Yes
Additional Pending Results:
official culture results
Discharge Plan
-
Patient Disposition: Home with Home Care
Discharge Diagnosis/Procedures: Right hip Osteoarthritis status post Right Total Hip Arthroplasty with Dr Quintana 02/10/25
Iron Deficiency Anemia
Hyponatremia
Hiccups
Condition: Good
Diet: Restrict fluids to 48 oz and Other diet
Additional Diets: Diabetic carb controlled diet x1 week for wound healing/infection prevention.
Adequate hydration, minimize opioids, and wear TEDs stockings to prevent low blood pressure/dizziness.
Activity: As tolerated and With Walker
Driving Restrictions: Not until seen by your Dr
Bathing Restrictions: OK to Shower
Blood Work: CBC without diff and BMP (Attn: sodium) on 02/15/25, with results to primary care and hematology
Other Services: VN, PT and OT
Wound Care: Dressing to be removed 1 week post-surgery.
Activity Restrictions/Additional Instructions:
Follow up with primary care provider and [employer] in 1 week of discharge. Follow up with orthopedic in 2-4 weeks of discharge.
Tylenol recommended for pain. This is available over the counter.
Baclofen prescribed as needed for Hiccups.
Cefadroxil prescribed as infection prophylaxis following recent hip replacement.
Laxatives recommended to prevent opiate induced constipation while on pain medications. Laxatives are available over the counter.
Iron supplementation for iron deficiency anemia. Iron supplements available over the counter.
Gabapentin and lidocaine patches prescribed for pain.
Oxycodone as needed prescribed for pain control.
Please take medications as prescribed/recommended and follow up with primary care provider and/or other healthcare provider involved in your care for refills and/or further adjustment to your medication regimen as necessary.
Stand Alone Forms: Total Hip/Knee Replacement D/C
Referrals:
Eryn Wrad MD [Family Provider, Internal Medicine]
Herb Quintana MD [Active, Orthopedics] - in two to four weeks
Referral Note: If not already scheduled, call to make a follow-up appointment.
Additional Discharge Medication Instructions: TAKE BOWEL MEDS DIRECTED UNTIL HAVING REGULAR BMs TO AVOID OBSTRUCTION (regardless of oral intake).
Prescriptions:
New
mupirocin 2 % ointment
1 applic intranasal BID Qty: 1 0RF
Patient Comments:
started teatment saturday02/07/25 in morning and completed BID, last took at home 02/10/25
docusate sodium 100 mg Capsule
100 mg PO BID Qty: 30 0RF
lidocaine 4 % Adhesive Patch,Medicated
2 patch topical DAILY Qty: 30 0RF
Rx Instructions:
Apply to sides of right thigh/hip.
12 hours on, [address] over incision.
gabapentin 100 mg Capsule
200 mg PO BID Qty: 20 0RF
melatonin 5 mg Tablet
5 mg PO HS Qty: 1 0RF
sennosides [Taya-saba] 8.6 mg Tablet
17.2 mg PO BID Qty: 30 0RF
acetaminophen 325 mg Tablet
650 mg PO Q4HWA Qty: 60 0RF
Rx Instructions:
DO NOT exceed >4000 mg daily.
ferrous sulfate 325 mg (65 mg iron) tablet
325 mg PO DAILY Qty: 30 0RF
Rx Instructions:
Take daily for iron deficiency anemia.
ondansetron HCl 4 mg tablet
4 mg PO Q6H PRN (Reason: nausea and vomiting) Qty: 30 0RF
oxycodone 5 mg tablet
5 - 10 mg PO Q6H PRN (Reason: moderate-severe pain) Qty: 30 0RF
Rx Instructions:
1 tab for moderate pain, 2 if severe.
Dx total joint.
cefadroxil 500 mg capsule
500 mg PO BID Qty: 14 0RF
baclofen 5 mg Tablet
2.5 mg PO TIDPRN PRN (Reason: hiccups/muscle spasms) Qty: 21 0RF
Continued
ezetimibe 10 mg Tablet
10 mg PO DAILY
Patient Comments:
PT TO EMAIL AND BRING IN MEDICATION LIST. THIS LIST OBTAINED FROM DR TRIPP OFFICE NOTE FROM 02/12/23.
ascorbic acid (vitamin C) [Vitamin C] 1,000 mg Tablet
1,000 mg PO DAILY
Patient Comments:
PT TO EMAIL AND BRING IN MEDICATION LIST. THIS LIST OBTAINED FROM DR TRIPP OFFICE NOTE FROM 02/12/23.
cholecalciferol (vitamin D3) [Vitamin D3] 125 mcg (5,000 unit) Tablet
125 mcg PO DAILY
Patient Comments:
PT TO EMAIL AND BRING IN MEDICATION LIST. THIS LIST OBTAINED FROM DR TRIPP OFFICE NOTE FROM 02/12/23.
atorvastatin 80 mg tablet
80 mg PO QPM
Patient Comments:
PT TO EMAIL AND BRING IN MEDICATION LIST. THIS LIST OBTAINED FROM DR TRIPP OFFICE NOTE FROM 02/12/23.
nitroglycerin [Nitrostat] 0.4 mg tablet, sublingual
0.4 mg sublingual [id number] PRN (Reason: chest pain)
Rx Instructions:
use one tab under tongue every 5-15 min up to 3 times
psyllium Packet
1 packet PO DAILY
omeprazole 20 mg Tablet,Delayed Release (Dr/Ec)
20 mg PO DAILY
hydralazine 25 mg Tablet
25 mg PO BID Qty: 1 0RF
Rx Instructions:
HOLD IF systolic blood pressure <130 while on post-surgical narcotics.
valsartan 160 mg tablet
80 mg PO QPM Qty: 1 0RF
Patient Comments:
PT TO EMAIL AND BRING IN MEDICATION LIST. THIS LIST OBTAINED FROM DR TRIPP OFFICE NOTE FROM 02/12/23.
Rx Instructions:
HOLD IF systolic blood pressure <130 while on post-surgical narcotics.
Changed
aspirin 81 mg Tablet,Chewable
81 mg PO BID 30 Days Qty: 60 0RF
Patient Comments:
PT TO EMAIL AND BRING IN MEDICATION LIST. THIS LIST OBTAINED FROM DR TRIPP OFFICE NOTE FROM 02/12/23.
Rx Instructions:
Take twice a day for 4 weeks post-surgery; then resume Aspirin 81 mg daily.
Held
Ultra Spectrum
1 tab PO DAILY
Hold Instructions: Resume on 02/17/25.
Homocysteine Formula 0.8-50-100 mg-mg-mcg Tablet
1 tab PO DAILY
Hold Instructions: Resume on 02/17/25.
Bone Flex
1 dose PO DAILY
Hold Instructions: Resume on 02/17/25.
Discontinued
sulfamethoxazole-trimethoprim 800-160 mg tablet
1 tab PO BID
ferrous sulfate 300 mg (60 mg iron) Tablet
300 mg PO DAILY
Discharge Orders:
Discharge Patient (As Directed); Ordered 02/14/25
Ordered By: Juanita Spring
Discharge Date and Time
Print Language: STATELESS
[2025-02-14] MEDS: ROXICODONE 5 MG PO (12:41)
--- NOTE | 2025-02-14 12:57 | CM ---
CM following re: discharge planning.
Reviewed pt's chart, met with pt. Pt's spouse and daughter at bedside.
Discharge order noted. Both pt and his spouse are aware. Pt stated he would prefer to stay here another day if possible.
IMM reviewed yesterday
Pt's daughter confirmed that [facility] / caregiver services in place.
Please fax discharge instructions to [facility] at [phone]
D/C plan: home with [facility], [facility] caregiver services and family support. Daughter to transport.
[2025-02-14] MEDS: DULCOLAX 5 MG PO (13:01)
[2025-02-14 14:01] VITALS: BP 121/49
== END 2025-02-14 13:50 | disposition home health service (06) | DRG 470 ==
LOC: 2 SOUTH 07:58
PROVIDERS: Physician Assistant; Physician Assistant Medical; ADMITTING PHYSICIAN Orthopaedic Surgery; ATTENDING PHYSICIAN Internal Medicine; CONSULT PHYSICIAN Internal Medicine Hematology & Oncology; FAMILY PHYSICIAN Internal Medicine; OTHER PHYSICIAN Hospitalist; REFERRING PHYSICIAN Nurse Practitioner Acute Care
PROC: 0SR904A Replacement of Right Hip Joint with Ceramic on Polyethylene Synthetic Substitute, Uncemented, Open Approach (ICD-10-PCS; 2025-02-10)
DX: M16.11 Unilateral primary osteoarthritis, right hip (principal); I50.32 Chronic diastolic (congestive) heart failure; I13.0 Hypertensive heart and chronic kidney disease with heart failure and stage 1 through stage 4 chronic kidney disease, or unspecified chronic kidney disease; C91.10 Chronic lymphocytic leukemia of B-cell type not having achieved remission; D62 Acute posthemorrhagic anemia; N39.0 Urinary tract infection, site not specified; E22.2 Syndrome of inappropriate secretion of antidiuretic hormone; N18.31 Chronic kidney disease, stage 3a; E78.00 Pure hypercholesterolemia, unspecified; I25.10 Atherosclerotic heart disease of native coronary artery without angina pectoris; I65.29 Occlusion and stenosis of unspecified carotid artery; D50.9 Iron deficiency anemia, unspecified; D69.6 Thrombocytopenia, unspecified; R91.1 Solitary pulmonary nodule; G47.33 Obstructive sleep apnea (adult) (pediatric); K21.9 Gastro-esophageal reflux disease without esophagitis; K44.9 Diaphragmatic hernia without obstruction or gangrene; K42.9 Umbilical hernia without obstruction or gangrene; N28.1 Cyst of kidney, acquired; K59.09 Other constipation; R41.89 Other symptoms and signs involving cognitive functions and awareness; N40.1 Benign prostatic hyperplasia with lower urinary tract symptoms; D63.8 Anemia in other chronic diseases classified elsewhere; N32.3 Diverticulum of bladder; R16.1 Splenomegaly, not elsewhere classified; N31.9 Neuromuscular dysfunction of bladder, unspecified; R73.03 Prediabetes; D63.1 Anemia in chronic kidney disease; R06.6 Hiccough; H91.93 Unspecified hearing loss, bilateral; I73.00 Raynaud's syndrome without gangrene; M45.9 Ankylosing spondylitis of unspecified sites in spine; Z86.0100 Personal history of colon polyps, unspecified; Z87.440 Personal history of urinary (tract) infections; Z95.5 Presence of coronary angioplasty implant and graft; Z87.19 Personal history of other diseases of the digestive system; Z90.79 Acquired absence of other genital organ(s); Z91.199 Patient's noncompliance with other medical treatment and regimen due to unspecified reason; Z86.73 Personal history of transient ischemic attack (TIA), and cerebral infarction without residual deficits; Z85.828 Personal history of other malignant neoplasm of skin; Z98.41 Cataract extraction status, right eye; Z98.42 Cataract extraction status, left eye; Z79.82 Long term (current) use of aspirin; Z86.718 Personal history of other venous thrombosis and embolism
CPT/HCPCS: 36415; 73502; 80048; 80053; 81003; 81015; 82607; 82728; 82746; 82784; 83036; 83540; 83550; 83735; 83930; 83935; 84100; 84295; 84300; 84443; 85025; 85027; 86850; 86900; 86901; 87040; 87070; 87086; 97110; 97116; 97162; 97167; 97530; 97535; C1713; C1776; J2916

== ENCOUNTER → 2025-02-23 11:35 | Outpatient (REF) | payer BC, MEDICARE, SELFPAY ==
[2025-02-23 12:35] LABS: Hematocrit 23.0 % (39.0-52.0); Hemoglobin 7.1 g/dL (13.0-18.0); Mean Corp Hgb Conc. 30.9 g/dL (33.0-37.0); Mean Corpuscular Volume 95.8 fL (80.0-94.0); Platelet Count 134 10^3/uL (130-400); Red Cell Dist. Width 17.2 % (11.5-14.5)
[2025-02-23 13:08] LABS: ALT (SGPT) 28 U/L (0-50); AST (SGOT) 24 U/L (17-59); Albumin 3.1 g/dl (3.5-5.0); Alkaline Phosphatase 55 U/L (38-126); Blood Urea Nitrogen 24 mg/dl (9-20); Calcium 8.7 mg/dl (8.4-10.2); Carbon Dioxide 27 mmol/L (22-30); Chloride 100 mmol/L (98-107); Glucose 105 mg/dl (70-99); LDH 251 U/L (120-246); Potassium 4.8 mmol/L (3.5-5.1); Sodium 132 mmol/L (135-145); Total Protein 5.3 g/dl (6.3-8.2); eGFR 53.50
[2025-02-23 13:37] LABS: Nucleated Red Blood Cells % 0.1 % (-)
== END ==
LOC: REG 11:35
PROVIDERS: ATTENDING PHYSICIAN Internal Medicine Hematology & Oncology; FAMILY PHYSICIAN Internal Medicine
DX: C91.10 Chronic lymphocytic leukemia of B-cell type not having achieved remission (principal); D64.9 Anemia, unspecified; D69.6 Thrombocytopenia, unspecified; E87.1 Hypo-osmolality and hyponatremia
CPT/HCPCS: 36415; 80053; 82784; 83615; 83930; 83935; 84300; 85025

== ENCOUNTER → 2025-03-02 11:12 | Outpatient (REF) | payer BC, MEDICARE, SELFPAY ==
[2025-03-02 13:20] LABS: Hematocrit 26.6 % (39.0-52.0); Hemoglobin 7.8 g/dL (13.0-18.0); Mean Corp Hgb Conc. 29.3 g/dL (33.0-37.0); Mean Corpuscular Volume 97.1 fL (80.0-94.0); Platelet Count 120 10^3/uL (130-400); Red Cell Dist. Width 18.3 % (11.5-14.5)
[2025-03-02 16:22] LABS: Nucleated Red Blood Cells % 0 % (-)
== END ==
LOC: REG 11:12
PROVIDERS: ATTENDING PHYSICIAN Internal Medicine Hematology & Oncology; FAMILY PHYSICIAN Orthopaedic Surgery; REFERRING PHYSICIAN Internal Medicine
DX: C91.10 Chronic lymphocytic leukemia of B-cell type not having achieved remission (principal)
CPT/HCPCS: 36415; 85025

== ENCOUNTER → 2025-03-15 14:40 | Outpatient (REF) | payer BC, MEDICARE, SELFPAY ==
[2025-03-15 15:41] LABS: Blood Urea Nitrogen 23 mg/dl (9-20); Calcium 8.6 mg/dl (8.4-10.2); Carbon Dioxide 27 mmol/L (22-30); Chloride 95 mmol/L (98-107); Glucose 100 mg/dl (70-99); Potassium 4.9 mmol/L (3.5-5.1); Sodium 126 mmol/L (135-145); eGFR 41.70
[2025-03-15 15:49] LABS: Urine Character Cloudy (Clear)
[2025-03-15 16:56] LABS: Urine Red Blood Cell 21-25 /HPF (0-2); Urine Squamous Cell 0-2 /LPF (Few); Urine White Cell >100 /HPF (0-5)
== END ==
LOC: REG 14:40
PROVIDERS: ATTENDING PHYSICIAN Internal Medicine
DX: E87.1 Hypo-osmolality and hyponatremia (principal); N39.0 Urinary tract infection, site not specified; C91.10 Chronic lymphocytic leukemia of B-cell type not having achieved remission
CPT/HCPCS: 36415; 80048; 81003; 81015; 86850; 86900; 86901; 87077; 87086

== ENCOUNTER → 2025-03-16 12:51 | Outpatient (REF) | payer BC, MEDICARE, SELFPAY ==
[2025-03-16 14:15] LABS: Hematocrit 32.5 % (39.0-52.0); Hemoglobin 10.3 g/dL (13.0-18.0); Mean Corp Hgb Conc. 31.7 g/dL (33.0-37.0); Mean Corpuscular Volume 95.6 fL (80.0-94.0); Platelet Count 119 10^3/uL (130-400); Red Cell Dist. Width 16.8 % (11.5-14.5)
[2025-03-16 14:30] LABS: Nucleated Red Blood Cells % 0 % (-)
== END ==
LOC: REG 12:51
PROVIDERS: ATTENDING PHYSICIAN Internal Medicine
DX: D64.9 Anemia, unspecified (principal)
CPT/HCPCS: 36415; 85025

== ENCOUNTER → 2025-03-18 08:23 | Outpatient (REF) | payer BC, MEDICARE, SELFPAY ==
[2025-03-18 11:46] LABS: Cortisol, Random 13.1 ug/dl; TSH 2.74 uIU/ml (0.47-4.68)
[2025-03-18 12:00] LABS: Blood Urea Nitrogen 30 mg/dl (9-20); Calcium 8.7 mg/dl (8.4-10.2); Carbon Dioxide 26 mmol/L (22-30); Chloride 99 mmol/L (98-107); Glucose 96 mg/dl (70-99); Potassium 4.9 mmol/L (3.5-5.1); Sodium 130 mmol/L (135-145); eGFR 48.95
== END ==
LOC: REG 08:23
PROVIDERS: ATTENDING PHYSICIAN Internal Medicine
DX: E87.1 Hypo-osmolality and hyponatremia (principal)
CPT/HCPCS: 36415; 80048; 82533; 83930; 83935; 84300; 84439; 84443

== ENCOUNTER → 2025-03-29 09:44 | Outpatient (REF) | payer BC, MEDICARE, SELFPAY ==
[2025-03-29 10:35] LABS: Urine Character Clear (Clear)
[2025-03-29 11:05] LABS: ALT (SGPT) 15 U/L (0-50); AST (SGOT) 20 U/L (17-59); Albumin 3.8 g/dl (3.5-5.0); Alkaline Phosphatase 69 U/L (38-126); Blood Urea Nitrogen 25 mg/dl (9-20); Calcium 9.2 mg/dl (8.4-10.2); Carbon Dioxide 29 mmol/L (22-30); Chloride 99 mmol/L (98-107); Glucose 131 mg/dl (70-99); Potassium 4.4 mmol/L (3.5-5.1); Sodium 132 mmol/L (135-145); Total Protein 5.8 g/dl (6.3-8.2); eGFR 53.50
[2025-03-29 11:08] LABS: Urine Red Blood Cell 0-2 /HPF (0-2); Urine White Cell >100 /HPF (0-5)
[2025-03-29 11:09] LABS: Urine Squamous Cell 0-2 /LPF (Few)
[2025-03-29 11:37] LABS: Microalb - Urine Creatinine 66.700 mg/dl; Microalbumin, Random Urine 1.6 mg/dl (0.6-1.7)
== END ==
LOC: REG 09:44
PROVIDERS: ATTENDING PHYSICIAN Internal Medicine Hematology & Oncology; FAMILY PHYSICIAN Internal Medicine
DX: E87.1 Hypo-osmolality and hyponatremia (principal); N39.0 Urinary tract infection, site not specified; R31.29 Other microscopic hematuria; R80.9 Proteinuria, unspecified; C91.10 Chronic lymphocytic leukemia of B-cell type not having achieved remission
CPT/HCPCS: 36415; 80053; 81003; 81015; 82043; 82570; 83930; 83935; 84300; 87086

== ENCOUNTER → 2025-04-12 09:18 | Outpatient (REF) | payer BC, MEDICARE, SELFPAY ==
[2025-04-12 10:14] LABS: Hematocrit 33.0 % (39.0-52.0); Hemoglobin 9.8 g/dL (13.0-18.0); Mean Corp Hgb Conc. 29.7 g/dL (33.0-37.0); Mean Corpuscular Volume 94.3 fL (80.0-94.0); Platelet Count 84 10^3/uL (130-400); Red Cell Dist. Width 17.0 % (11.5-14.5)
[2025-04-12 10:47] LABS: ALT (SGPT) 18 U/L (0-50); AST (SGOT) 21 U/L (17-59); Albumin 3.9 g/dl (3.5-5.0); Alkaline Phosphatase 67 U/L (38-126); Blood Urea Nitrogen 22 mg/dl (9-20); Calcium 8.8 mg/dl (8.4-10.2); Carbon Dioxide 27 mmol/L (22-30); Chloride 103 mmol/L (98-107); Glucose 97 mg/dl (70-99); HDL Cholesterol 36 mg/dl; Iron 51 ug/dl (49-181); LDL Cholesterol, Calculated 56 mg/dl; Potassium 4.8 mmol/L (3.5-5.1); Sodium 135 mmol/L (135-145); Total Protein 6.0 g/dl (6.3-8.2); Very Low Density Lipoprotein 12 mg/dl (0-30); eGFR 53.50
[2025-04-12 10:55] LABS: Urine Character Clear (Clear)
[2025-04-12 11:04] LABS: Nucleated Red Blood Cells % 0 % (-)
[2025-04-12 11:10] LABS: PSA, Total - Diagnostic 0.49 ng/ml (0.0-4.0)
[2025-04-12 11:14] LABS: Ferritin 138.0 ng/ml (17.9-464.0)
[2025-04-12 11:30] LABS: Urine Red Blood Cell 16-20 /HPF (0-2); Urine White Cell 70-80 /HPF (0-5)
[2025-04-12 13:13] LABS: Glycohemoglobin (HgbA1c) 5.3 % (4.0-5.6)
[2025-04-13 21:15] LABS: Transferrin 201 mg/dL (200-360)
== END ==
LOC: REG 09:18
PROVIDERS: ATTENDING PHYSICIAN Internal Medicine Hematology & Oncology; FAMILY PHYSICIAN Internal Medicine
DX: I25.10 Atherosclerotic heart disease of native coronary artery without angina pectoris (principal); E78.5 Hyperlipidemia, unspecified; I10 Essential (primary) hypertension; C91.10 Chronic lymphocytic leukemia of B-cell type not having achieved remission
CPT/HCPCS: 36415; 80053; 80061; 81003; 81015; 82728; 82784; 83036; 83540; 84153; 84466; 85025; 87077; 87086; 87186

== ENCOUNTER → 2025-05-11 13:10 | Outpatient (REF) | payer BC, MEDICARE, SELFPAY | LOC: RAD 13:10 | PROVIDERS: ATTENDING PHYSICIAN Surgery; FAMILY PHYSICIAN Internal Medicine | DX: N40.1 Benign prostatic hyperplasia with lower urinary tract symptoms (principal); R39.14 Feeling of incomplete bladder emptying; R33.9 Retention of urine, unspecified | CPT/HCPCS: 76770 ==

== ENCOUNTER → 2025-05-26 08:36 | Outpatient (REF) | payer BC, MEDICARE, SELFPAY ==
[2025-05-26 09:33] LABS: Hematocrit 32.5 % (39.0-52.0); Hemoglobin 10.0 g/dL (13.0-18.0); Mean Corp Hgb Conc. 30.8 g/dL (33.0-37.0); Mean Corpuscular Volume 97.9 fL (80.0-94.0); Platelet Count 66 10^3/uL (130-400); Red Cell Dist. Width 17.6 % (11.5-14.5)
[2025-05-26 09:41] LABS: Nucleated Red Blood Cells % 0 % (-)
[2025-05-26 09:53] LABS: ALT (SGPT) 20 U/L (0-50); AST (SGOT) 21 U/L (17-59); Albumin 3.8 g/dl (3.5-5.0); Alkaline Phosphatase 54 U/L (38-126); Blood Urea Nitrogen 28 mg/dl (9-20); Calcium 8.6 mg/dl (8.4-10.2); Carbon Dioxide 30 mmol/L (22-30); Chloride 103 mmol/L (98-107); Glucose 139 mg/dl (70-99); Iron 54 ug/dl (49-181); Potassium 4.8 mmol/L (3.5-5.1); Sodium 137 mmol/L (135-145); Total Protein 5.8 g/dl (6.3-8.2); eGFR 41.70
[2025-05-26 10:30] LABS: Ferritin 72.8 ng/ml (17.9-464.0)
[2025-05-26 11:01] LABS: Folate 11.6 ng/ml (2.76-20); Vitamin B12 905 pg/ml (239-931)
== END ==
LOC: REG 08:36
PROVIDERS: ATTENDING PHYSICIAN Internal Medicine Hematology & Oncology; FAMILY PHYSICIAN Internal Medicine
DX: C91.10 Chronic lymphocytic leukemia of B-cell type not having achieved remission (principal)
CPT/HCPCS: 36415; 80053; 82607; 82728; 82746; 83540; 85025